=== PATIENT | female | born 1955 | race Caucasian/White ===

== ENCOUNTER 2021-09-20 09:20 | Inpatient (IN) ==
[2021-09-20 10:49] LABS: Basophils % 0.3 % (0.0-0.8); Eosinophils % 0.4 % (0.00-10.9); Hematocrit 40.1 VOL% (35.7-47.0); Hemoglobin 12.7 GM/DL (12.0-16.0); Immature Granulocytes % 0.3 %; Immature Granulocytes Absolute 0.03 #; Lymphocytes # 2.4 10*3/uL (1.4-4.0); Lymphocytes % 24.4 % (21.3-54.2); Mean Corpuscular HGB Conc 31.7 GM/DL (32-36); Mean Corpuscular Volume 84.6 FL (87-102); Mean Platelet Volume 8.9 FL (9.6-12.0); Monocytes # 0.6 10*3/uL (0.11-0.8); Neutrophils % 68.6 % (38.7-73.9); Platelet Count 398 T/CUMM (130-400); Red Blood Count 4.74 MC/CUMM (3.8-5.5); Red Cell Distribution Width 12.6 % (9.3-17.3); White Blood Count 9.7 T/CUMM (4-12)
[2021-09-20 10:53] LABS: Glucose,Urine (UA) >1000 mg/dL (Negative); Ketones,Urine Trace mg/dL (Negative); Mucus,Urine Many /LPF (Occasional); Nitrite,Urine Negative (Negative); Protein,Urine Trace mg/dL (Negative); RBC,Urine 2 /HPF (0-4); Squamous Epithelial Cell,Urine Occasional /HPF (0-10); Urine Appearance Clear (Clear); Urine Color Yellow (Yellow); Urine Specific Gravity > 1.030 (1.001-1.035); Urine pH 5.5 (4.5-8.0)
[2021-09-20 10:54] LABS: Bilirubin,Urine Negative (Negative); Blood, Urine Small mg/dL (Negative); Urine Urobilinogen 0.2 eU/dL (<2.0)
[2021-09-20 11:07] LABS: Bilirubin,Total 0.6 MG/DL (0.20-1.00); Calcium 10.1 MG/DL (8.5-10.1); Osmolality,Calculated 279.8 MOS/KG (273-304); Potassium 3.9 MMOL/L (3.5-5.1); Total Protein 7.5 G/DL (6.4-8.2)
[2021-09-20] MEDS ORDERED: ACETAMINOPHEN 325 MG TABLET PO PRN (14:59)
[2021-09-20] MEDS ORDERED: ONDANSETRON 4 MG/2 ML VIAL IV PRN (14:59)
[2021-09-20] MEDS ORDERED: DOCUSATE SODIUM 100 MG CAPSULE PO PRN (14:59)
[2021-09-20] MEDS ORDERED: hydrALAZINE 20 MG/1 ML VIAL IV PRN (14:59)
[2021-09-20] MEDS ORDERED: GLUCAGON 1 MG VIAL IM PRN (14:59)
[2021-09-20] MEDS ORDERED: ENOXAPARIN 40 MG/0.4 ML SYRINGE SUBCUT SCH (15:00)
[2021-09-20] MEDS ORDERED: DEXTROSE 10% 250 ML BAG IV PRN (15:12)
[2021-09-20] MEDS: LACTATED RINGERS 1,000 ML IV SCH (16:16)
[2021-09-20] MEDS: AZITHROMYCIN INJ 500 MG in SODIUM CHLORIDE 0.9% 250 ML IV SCH (16:16)
[2021-09-20] MEDS: methylPREDNISolone SOD SUC 40 MG/1 ML VIAL IV SCH (16:16)
[2021-09-20] MEDS: cefTRIAXone 1,000 MG in SODIUM CHLORIDE 0.9% 100 ML IV SCH (16:16)
[2021-09-20 16:59] LABS: Thyroid Stimulating Hormone 2.21 uIU/ml (0.358-3.74)
[2021-09-20] MEDS: INSULIN LISPRO 100 UNIT/ML SUBCUT SCH ×2 (18:44→21:52)
[2021-09-20] MEDS: glipiZIDE 10 MG TABLET PO SCH (18:45)
[2021-09-20] MEDS: ALBUTEROL/IPRATROPIUM 3 ML NEB RESP TX SCH (19:26)
[2021-09-20] MEDS: GABAPENTIN 600 MG TABLET PO SCH (21:12)
[2021-09-20] MEDS: SIMVASTATIN 20 MG TABLET PO SCH (21:12)
[2021-09-20] MEDS: FLUTICASONE 50 MCG NASAL SPRAY 16 GM BOTTLE BOTH NARES SCH (21:54)
[2021-09-21] MEDS: ALBUTEROL/IPRATROPIUM 3 ML NEB RESP TX SCH ×4 (00:52→19:25)
[2021-09-21] MEDS: LACTATED RINGERS 1,000 ML IV SCH ×3 (01:07→22:52)
[2021-09-21] MEDS: methylPREDNISolone SOD SUC 40 MG/1 ML VIAL IV SCH ×2 (02:34→17:42)
[2021-09-21 05:01] LABS: Hematocrit 35.5 VOL% (35.7-47.0); Hemoglobin 11.2 GM/DL (12.0-16.0); Immature Granulocytes % 0.5 %; Immature Granulocytes Absolute 0.04 #; Lymphocytes # 0.7 10*3/uL (1.4-4.0); Lymphocytes % 8.9 % (21.3-54.2); Mean Corpuscular HGB Conc 31.5 GM/DL (32-36); Mean Corpuscular Volume 83.7 FL (87-102); Mean Platelet Volume 8.9 FL (9.6-12.0); Monocytes # 0.1 10*3/uL (0.11-0.8); Neutrophils % 89.6 % (38.7-73.9); Platelet Count 350 T/CUMM (130-400); Red Blood Count 4.24 MC/CUMM (3.8-5.5); Red Cell Distribution Width 12.7 % (9.3-17.3); White Blood Count 7.3 T/CUMM (4-12)
[2021-09-21 05:23] LABS: Alanine Aminotransferase 13 U/L (13-56); Albumin 3.4 G/DL (3.4-5.0); Alkaline Phosphatase 152 U/L (45-117); Aspartate Amino Transferase 10 U/L (0-37); Bilirubin,Total < 0.39 MG/DL (0.20-1.00); Blood Urea Nitrogen 13 MG/DL (7-18); Calcium 9.6 MG/DL (8.5-10.1); Carbon Dioxide 23 MMOL/L (21-32); Chloride 104 MMOL/L (98-107); Cholesterol 152 MG/DL (50-200); Glucose 272 MG/DL (74-106); HDL Cholesterol 49 MG/DL (40-60); Osmolality,Calculated 282.8 MOS/KG (273-304); Potassium 3.9 MMOL/L (3.5-5.1); Sodium 137 MMOL/L (136-145); Total Protein 7.1 G/DL (6.4-8.2); Triglycerides 126 MG/DL (2-150); VLDL Cholesterol 25.2 MG/DL
[2021-09-21] MEDS ORDERED: METOPROLOL SUCCINATE XL 25 MG TABLET PO SCH (09:00)
[2021-09-21] MEDS: INSULIN GLARGINE 100 UNIT/ML SUBCUT SCH (09:58)
[2021-09-21] MEDS: ASPIRIN CHEW 81 MG TABLET PO SCH (09:58)
[2021-09-21] MEDS: glipiZIDE 10 MG TABLET PO SCH ×2 (09:58→18:02)
[2021-09-21] MEDS: METOPROLOL SUCCINATE XL 25 MG TABLET PO SCH ×2 (09:58→21:41)
[2021-09-21] MEDS: PANTOPRAZOLE 40 MG TABLET PO SCH (09:58)
[2021-09-21] MEDS: INSULIN LISPRO 100 UNIT/ML SUBCUT SCH ×4 (09:58→21:40)
[2021-09-21] MEDS: MAGNESIUM OXIDE 400 MG TABLET PO SCH (09:58)
[2021-09-21] MEDS: FLUTICASONE 50 MCG NASAL SPRAY 16 GM BOTTLE BOTH NARES SCH ×2 (09:59→20:51)
[2021-09-21] MEDS: GABAPENTIN 600 MG TABLET PO SCH ×3 (09:59→21:41)
[2021-09-21] MEDS ORDERED: APIXABAN 5 MG TABLET PO SCH (10:30)
[2021-09-21 10:36] LABS: % Iron Saturation 5.9 % (18-50)
[2021-09-21 10:52] LABS: Cancer Antigen 19-9 225.15 U/ML (0-35); Carcinoembryonic Antigen 44.6 NG/ML (0.0-5.0)
[2021-09-21] MEDS ORDERED: BENZONATATE 100 MG CAPSULE PO PRN (11:56)
[2021-09-21] MEDS: ENOXAPARIN 60 MG/0.6 ML SYRINGE SUBCUT SCH (12:22)
[2021-09-21] MEDS: cefTRIAXone 1,000 MG in SODIUM CHLORIDE 0.9% 100 ML IV SCH (17:47)
[2021-09-21] MEDS: AZITHROMYCIN INJ 500 MG in SODIUM CHLORIDE 0.9% 250 ML IV SCH (18:31)
[2021-09-21] MEDS: SIMVASTATIN 20 MG TABLET PO SCH (21:42)
[2021-09-22] MEDS: ENOXAPARIN 60 MG/0.6 ML SYRINGE SUBCUT SCH ×2 (00:19→13:47)
[2021-09-22] MEDS: ALBUTEROL/IPRATROPIUM 3 ML NEB RESP TX SCH ×4 (00:20→19:08)
[2021-09-22] MEDS: methylPREDNISolone SOD SUC 40 MG/1 ML VIAL IV SCH ×2 (02:55→16:45)
[2021-09-22] MEDS: INSULIN GLARGINE 100 UNIT/ML SUBCUT SCH (09:07)
[2021-09-22] MEDS: INSULIN LISPRO 100 UNIT/ML SUBCUT SCH ×4 (09:07→21:04)
[2021-09-22] MEDS: PANTOPRAZOLE 40 MG TABLET PO SCH (09:07)
[2021-09-22] MEDS: ASPIRIN CHEW 81 MG TABLET PO SCH (09:08)
[2021-09-22] MEDS: METOPROLOL SUCCINATE XL 25 MG TABLET PO SCH ×2 (09:08→20:38)
[2021-09-22] MEDS: MAGNESIUM OXIDE 400 MG TABLET PO SCH (09:08)
[2021-09-22] MEDS: glipiZIDE 10 MG TABLET PO SCH ×2 (09:08→18:13)
[2021-09-22] MEDS: FLUTICASONE 50 MCG NASAL SPRAY 16 GM BOTTLE BOTH NARES SCH ×2 (09:08→20:14)
[2021-09-22] MEDS: GABAPENTIN 600 MG TABLET PO SCH ×3 (09:08→20:39)
[2021-09-22] MEDS ORDERED: HYDROmorphone 1 MG/1 ML SYRINGE IV PRN (10:30)
[2021-09-22] MEDS: CHOLECALCIFEROL 1,000 UNIT TABLET PO SCH (13:46)
[2021-09-22] MEDS: LACTATED RINGERS 1,000 ML IV SCH ×2 (13:47→18:12)
[2021-09-22] MEDS: SIMVASTATIN 20 MG TABLET PO SCH (20:39)
[2021-09-23] MEDS: ALBUTEROL/IPRATROPIUM 3 ML NEB RESP TX SCH ×4 (00:46→19:17)
[2021-09-23] MEDS: LACTATED RINGERS 1,000 ML IV SCH ×2 (03:36→12:51)
[2021-09-23] MEDS: methylPREDNISolone SOD SUC 40 MG/1 ML VIAL IV SCH ×2 (03:37→15:45)
[2021-09-23 05:43] LABS: Hematocrit 33.3 VOL% (35.7-47.0); Hemoglobin 10.6 GM/DL (12.0-16.0); Immature Granulocytes % 0.7 %; Immature Granulocytes Absolute 0.05 #; Lymphocytes # 0.7 10*3/uL (1.4-4.0); Lymphocytes % 9.4 % (21.3-54.2); Mean Corpuscular HGB Conc 31.8 GM/DL (32-36); Mean Corpuscular Volume 83.7 FL (87-102); Mean Platelet Volume 9.1 FL (9.6-12.0); Monocytes # 0.1 10*3/uL (0.11-0.8); Monocytes % 1.8 % (1.7-12.7); Neutrophils % 88.1 % (38.7-73.9); Platelet Count 344 T/CUMM (130-400); Red Blood Count 3.98 MC/CUMM (3.8-5.5); Red Cell Distribution Width 12.8 % (9.3-17.3); White Blood Count 7.3 T/CUMM (4-12)
[2021-09-23 06:09] LABS: Calcium 9.6 MG/DL (8.5-10.1); Osmolality,Calculated 283.4 MOS/KG (273-304); Potassium 4.2 MMOL/L (3.5-5.1)
[2021-09-23] MEDS: METOPROLOL SUCCINATE XL 25 MG TABLET PO SCH (09:28)
[2021-09-23] MEDS: CHOLECALCIFEROL 1,000 UNIT TABLET PO SCH (09:28)
[2021-09-23] MEDS: PANTOPRAZOLE 40 MG TABLET PO SCH (09:29)
[2021-09-23] MEDS: GABAPENTIN 600 MG TABLET PO SCH ×3 (09:29→20:44)
[2021-09-23] MEDS: MAGNESIUM OXIDE 400 MG TABLET PO SCH (09:29)
[2021-09-23] MEDS: glipiZIDE 10 MG TABLET PO SCH ×2 (09:29→18:03)
[2021-09-23] MEDS: ASPIRIN CHEW 81 MG TABLET PO SCH (09:29)
[2021-09-23] MEDS: FLUTICASONE 50 MCG NASAL SPRAY 16 GM BOTTLE BOTH NARES SCH ×2 (09:30→20:47)
[2021-09-23] MEDS: LIDOCAINE 5% PATCH TRANSDERM SCH (09:41)
[2021-09-23] MEDS: INSULIN GLARGINE 100 UNIT/ML SUBCUT SCH (09:41)
[2021-09-23] MEDS: INSULIN LISPRO 100 UNIT/ML SUBCUT SCH ×4 (09:41→20:47)
[2021-09-23] MEDS: guaiFENesin/CODEINE 5 ML LIQUID PO PRN ×2 (10:26→20:43)
[2021-09-23] MEDS: SOTALOL 80 MG TABLET PO SCH ×2 (10:45→20:44)
[2021-09-23] MEDS: DILTIAZEM INJ 100 MG in SODIUM CHLORIDE 0.9% 100 ML IV SCH ×2 (12:53→12:54)
[2021-09-23] MEDS: ROSUVASTATIN 20 MG TABLET PO SCH (20:46)
[2021-09-23] MEDS: FERROUS SULFATE 325 MG TABLET PO SCH (20:48)
[2021-09-24] MEDS: ALBUTEROL/IPRATROPIUM 3 ML NEB RESP TX SCH ×4 (00:22→20:01)
[2021-09-24] MEDS: LACTATED RINGERS 1,000 ML IV SCH ×4 (00:36→19:59)
[2021-09-24] MEDS: methylPREDNISolone SOD SUC 40 MG/1 ML VIAL IV SCH ×2 (03:15→15:42)
[2021-09-24 05:50] LABS: Hematocrit 33.5 VOL% (35.7-47.0); Hemoglobin 10.7 GM/DL (12.0-16.0); Immature Granulocytes % 0.8 %; Immature Granulocytes Absolute 0.07 #; Lymphocytes # 0.7 10*3/uL (1.4-4.0); Lymphocytes % 7.9 % (21.3-54.2); Mean Corpuscular HGB Conc 31.9 GM/DL (32-36); Mean Corpuscular Volume 83.1 FL (87-102); Mean Platelet Volume 9.3 FL (9.6-12.0); Monocytes # 0.2 10*3/uL (0.11-0.8); Monocytes % 1.7 % (1.7-12.7); Neutrophils % 89.6 % (38.7-73.9); Platelet Count 368 T/CUMM (130-400); Red Blood Count 4.03 MC/CUMM (3.8-5.5); Red Cell Distribution Width 12.8 % (9.3-17.3); White Blood Count 9.2 T/CUMM (4-12)
[2021-09-24 06:07] LABS: Calcium 9.2 MG/DL (8.5-10.1)
[2021-09-24 06:11] LABS: Potassium 4.1 MMOL/L (3.5-5.1)
[2021-09-24] MEDS: INSULIN LISPRO 100 UNIT/ML SUBCUT SCH ×4 (06:30→22:47)
[2021-09-24] MEDS ORDERED: LIDOCAINE 2% 5 ML VIAL ONE (08:06)
[2021-09-24] MEDS ORDERED: propofoL 200 MG/20 ML VIAL IV ONE (08:06)
[2021-09-24] MEDS: glipiZIDE 10 MG TABLET PO SCH ×2 (09:56→17:50)
[2021-09-24] MEDS: ASPIRIN CHEW 81 MG TABLET PO SCH (09:56)
[2021-09-24] MEDS: MAGNESIUM OXIDE 400 MG TABLET PO SCH (09:57)
[2021-09-24] MEDS: PANTOPRAZOLE 40 MG TABLET PO SCH (09:57)
[2021-09-24] MEDS: FERROUS SULFATE 325 MG TABLET PO SCH ×2 (09:57→20:48)
[2021-09-24] MEDS: SOTALOL 80 MG TABLET PO SCH ×2 (09:57→20:48)
[2021-09-24] MEDS: CHOLECALCIFEROL 1,000 UNIT TABLET PO SCH (09:57)
[2021-09-24] MEDS: GABAPENTIN 600 MG TABLET PO SCH ×3 (09:57→20:48)
[2021-09-24] MEDS: INSULIN GLARGINE 100 UNIT/ML SUBCUT SCH (09:58)
[2021-09-24] MEDS: FLUTICASONE 50 MCG NASAL SPRAY 16 GM BOTTLE BOTH NARES SCH ×2 (09:58→22:47)
[2021-09-24] MEDS: LIDOCAINE 5% PATCH TRANSDERM SCH (09:59)
[2021-09-24] MEDS: DILTIAZEM INJ 100 MG in SODIUM CHLORIDE 0.9% 100 ML IV SCH (10:31)
[2021-09-24] MEDS: ROSUVASTATIN 20 MG TABLET PO SCH (20:48)
[2021-09-25] MEDS: ALBUTEROL/IPRATROPIUM 3 ML NEB RESP TX SCH ×5 (00:25→19:10)
[2021-09-25] MEDS: methylPREDNISolone SOD SUC 40 MG/1 ML VIAL IV SCH ×2 (02:35→16:22)
[2021-09-25 06:10] LABS: Basophils % 0.1 % (0.0-0.8); Hemoglobin 10.4 GM/DL (12.0-16.0); Lymphocytes # 0.8 10*3/uL (1.4-4.0); Lymphocytes % 7.9 % (21.3-54.2); Mean Corpuscular HGB Conc 31.5 GM/DL (32-36); Mean Corpuscular Volume 83.3 FL (87-102); Mean Platelet Volume 9.6 FL (9.6-12.0); Monocytes # 0.3 10*3/uL (0.11-0.8); Monocytes % 2.8 % (1.7-12.7); Neutrophils % 88.2 % (38.7-73.9); Platelet Count 379 T/CUMM (130-400); Red Blood Count 3.96 MC/CUMM (3.8-5.5); Red Cell Distribution Width 12.6 % (9.3-17.3); White Blood Count 9.8 T/CUMM (4-12)
[2021-09-25 06:33] LABS: Calcium 9.5 MG/DL (8.5-10.1); Osmolality,Calculated 285.4 MOS/KG (273-304); Potassium 3.8 MMOL/L (3.5-5.1)
[2021-09-25] MEDS: LACTATED RINGERS 1,000 ML IV SCH (06:57)
[2021-09-25] MEDS: CHOLECALCIFEROL 1,000 UNIT TABLET PO SCH (08:52)
[2021-09-25] MEDS: glipiZIDE 10 MG TABLET PO SCH ×2 (08:52→16:27)
[2021-09-25] MEDS: ASPIRIN CHEW 81 MG TABLET PO SCH (08:52)
[2021-09-25] MEDS: MAGNESIUM OXIDE 400 MG TABLET PO SCH (08:52)
[2021-09-25] MEDS: PANTOPRAZOLE 40 MG TABLET PO SCH (08:52)
[2021-09-25] MEDS: FERROUS SULFATE 325 MG TABLET PO SCH ×2 (08:53→20:55)
[2021-09-25] MEDS: SOTALOL 80 MG TABLET PO SCH ×2 (08:53→20:55)
[2021-09-25] MEDS: GABAPENTIN 600 MG TABLET PO SCH ×3 (08:53→20:54)
[2021-09-25] MEDS: INSULIN LISPRO 100 UNIT/ML SUBCUT SCH ×4 (08:53→21:24)
[2021-09-25] MEDS: guaiFENesin/CODEINE 5 ML LIQUID PO PRN (08:54)
[2021-09-25] MEDS: INSULIN GLARGINE 100 UNIT/ML SUBCUT SCH (08:54)
[2021-09-25] MEDS: FLUTICASONE 50 MCG NASAL SPRAY 16 GM BOTTLE BOTH NARES SCH ×2 (08:55→21:14)
[2021-09-25] MEDS: LIDOCAINE 5% PATCH TRANSDERM SCH (09:01)
[2021-09-25] MEDS ORDERED: DILTIAZEM 30 MG TABLET PO PRN (12:40)
[2021-09-25] MEDS: NYSTATIN 500,000 UNIT/5 ML UDCUP SWISH/SWAL SCH ×2 (16:28→21:51)
[2021-09-25] MEDS: ROSUVASTATIN 20 MG TABLET PO SCH (20:55)
[2021-09-26] MEDS: ALBUTEROL/IPRATROPIUM 3 ML NEB RESP TX SCH ×4 (00:30→18:59)
[2021-09-26] MEDS: methylPREDNISolone SOD SUC 40 MG/1 ML VIAL IV SCH ×2 (03:00→16:35)
[2021-09-26 05:16] LABS: Basophils % 0.1 % (0.0-0.8); Hematocrit 34.9 VOL% (35.7-47.0); Hemoglobin 11.1 GM/DL (12.0-16.0); Immature Granulocytes % 0.9 %; Lymphocytes # 1.5 10*3/uL (1.4-4.0); Lymphocytes % 13.7 % (21.3-54.2); Mean Corpuscular HGB Conc 31.8 GM/DL (32-36); Mean Corpuscular Volume 82.9 FL (87-102); Mean Platelet Volume 9.3 FL (9.6-12.0); Monocytes # 0.6 10*3/uL (0.11-0.8); Monocytes % 5.7 % (1.7-12.7); Neutrophils % 79.6 % (38.7-73.9); Platelet Count 433 T/CUMM (130-400); Red Blood Count 4.21 MC/CUMM (3.8-5.5); Red Cell Distribution Width 12.7 % (9.3-17.3)
[2021-09-26 05:42] LABS: Calcium 9.1 MG/DL (8.5-10.1); Osmolality,Calculated 287.7 MOS/KG (273-304); Potassium 4.4 MMOL/L (3.5-5.1)
[2021-09-26] MEDS ORDERED: MEPERIDINE 50 MG/1 ML VIAL IM ONE (07:00)
[2021-09-26] MEDS ORDERED: PROMETHAZINE 25 MG/1 ML VIAL IM ONE (07:00)
[2021-09-26] MEDS: DILTIAZEM INJ 100 MG in SODIUM CHLORIDE 0.9% 100 ML IV SCH ×2 (07:15→08:50)
[2021-09-26] MEDS: LACTATED RINGERS 1,000 ML IV SCH ×2 (07:15→13:18)
[2021-09-26] MEDS ORDERED: MIDAZOLAM 2 MG/2 ML VIAL IV ONE (07:30)
[2021-09-26] MEDS ORDERED: LIDOCAINE 1% 20 ML VIAL MISC INJ ONE (07:30)
[2021-09-26] MEDS ORDERED: LIDOCAINE 2% 20 ML VIAL RESP TX ONE (07:30)
[2021-09-26] MEDS ORDERED: LIDOCAINE 2% VISCOUS 100 ML BOTTLE SWISH/SPIT ONE (07:30)
[2021-09-26] MEDS: MAGNESIUM OXIDE 400 MG TABLET PO SCH (08:50)
[2021-09-26] MEDS: INSULIN LISPRO 100 UNIT/ML SUBCUT SCH ×4 (08:50→21:49)
[2021-09-26] MEDS: INSULIN GLARGINE 100 UNIT/ML SUBCUT SCH (08:50)
[2021-09-26] MEDS: SOTALOL 80 MG TABLET PO SCH ×2 (08:50→20:48)
[2021-09-26] MEDS: FERROUS SULFATE 325 MG TABLET PO SCH ×2 (08:50→20:48)
[2021-09-26] MEDS: glipiZIDE 10 MG TABLET PO SCH ×2 (08:50→17:16)
[2021-09-26] MEDS: ASPIRIN CHEW 81 MG TABLET PO SCH (08:50)
[2021-09-26] MEDS: FLUTICASONE 50 MCG NASAL SPRAY 16 GM BOTTLE BOTH NARES SCH ×2 (08:50→20:49)
[2021-09-26] MEDS: LIDOCAINE 5% PATCH TRANSDERM SCH (08:50)
[2021-09-26] MEDS: NYSTATIN 500,000 UNIT/5 ML UDCUP SWISH/SWAL SCH ×4 (08:57→20:47)
[2021-09-26] MEDS: GABAPENTIN 600 MG TABLET PO SCH ×3 (08:57→20:48)
[2021-09-26] MEDS ORDERED: LIDOCAINE 2% 5 ML VIAL ONE ×2 (10:48→12:17)
[2021-09-26] MEDS ORDERED: fentaNYL 100 MCG/2 ML VIAL ONE ×2 (10:48→12:17)
[2021-09-26] MEDS ORDERED: propofoL 200 MG/20 ML VIAL IV ONE ×2 (10:48→12:17)
[2021-09-26] MEDS ORDERED: LACTATED RINGERS 1,000 ML IV SCH (11:00)
[2021-09-26] MEDS ORDERED: BUPIVACAINE MPF 0.25% 10 ML VIAL ONE (11:30)
[2021-09-26] MEDS ORDERED: LIDOCAINE 1% 5 ML VIAL ONE (11:31)
[2021-09-26] MEDS ORDERED: DEXAMETHASONE 10 MG/1 ML VIAL ONE (11:31)
[2021-09-26] MEDS ORDERED: TISSUE ADHESIVE 1 EACH APPLICATOR TOP ONE (12:07)
[2021-09-26] MEDS: CHOLECALCIFEROL 1,000 UNIT TABLET PO SCH (16:39)
[2021-09-26] MEDS: PANTOPRAZOLE 40 MG TABLET PO SCH (16:39)
[2021-09-26] MEDS: ROSUVASTATIN 20 MG TABLET PO SCH (20:48)
[2021-09-27] MEDS: ALBUTEROL/IPRATROPIUM 3 ML NEB RESP TX SCH ×2 (00:11→07:18)
[2021-09-27] MEDS: methylPREDNISolone SOD SUC 40 MG/1 ML VIAL IV SCH ×2 (04:04→16:51)
[2021-09-27 07:52] LABS: Basophils % 0.1 % (0.0-0.8); Hematocrit 37.3 VOL% (35.7-47.0); Immature Granulocytes % 0.8 %; Immature Granulocytes Absolute 0.08 #; Lymphocytes # 0.8 10*3/uL (1.4-4.0); Lymphocytes % 7.4 % (21.3-54.2); Mean Corpuscular HGB Conc 32.2 GM/DL (32-36); Mean Corpuscular Volume 82.9 FL (87-102); Mean Platelet Volume 8.8 FL (9.6-12.0); Monocytes # 0.3 10*3/uL (0.11-0.8); Monocytes % 3.3 % (1.7-12.7); Neutrophils % 88.4 % (38.7-73.9); Platelet Count 444 T/CUMM (130-400); Red Cell Distribution Width 12.8 % (9.3-17.3); White Blood Count 10.3 T/CUMM (4-12)
[2021-09-27 08:09] LABS: Calcium 9.3 MG/DL (8.5-10.1); Osmolality,Calculated 286.2 MOS/KG (273-304); Potassium 4.4 MMOL/L (3.5-5.1)
[2021-09-27] MEDS: INSULIN LISPRO 100 UNIT/ML SUBCUT SCH ×3 (08:37→16:51)
[2021-09-27] MEDS: glipiZIDE 10 MG TABLET PO SCH (08:37)
[2021-09-27] MEDS: FERROUS SULFATE 325 MG TABLET PO SCH (08:38)
[2021-09-27] MEDS: INSULIN GLARGINE 100 UNIT/ML SUBCUT SCH (08:39)
[2021-09-27] MEDS: ASPIRIN CHEW 81 MG TABLET PO SCH (08:39)
[2021-09-27] MEDS: LIDOCAINE 5% PATCH TRANSDERM SCH (08:39)
[2021-09-27] MEDS: FLUTICASONE 50 MCG NASAL SPRAY 16 GM BOTTLE BOTH NARES SCH (08:39)
[2021-09-27] MEDS: SOTALOL 80 MG TABLET PO SCH (08:39)
[2021-09-27] MEDS: CHOLECALCIFEROL 1,000 UNIT TABLET PO SCH (08:40)
[2021-09-27] MEDS: NYSTATIN 500,000 UNIT/5 ML UDCUP SWISH/SWAL SCH ×2 (08:40→13:51)
[2021-09-27] MEDS: MAGNESIUM OXIDE 400 MG TABLET PO SCH (08:40)
[2021-09-27] MEDS: GABAPENTIN 600 MG TABLET PO SCH ×2 (08:40→16:51)
[2021-09-27] MEDS: PANTOPRAZOLE 40 MG TABLET PO SCH (08:40)
[2021-09-27] MEDS: DILTIAZEM INJ 100 MG in SODIUM CHLORIDE 0.9% 100 ML IV SCH (10:54)
[2021-09-27] MEDS: LACTATED RINGERS 1,000 ML IV SCH (10:55)
[2021-09-27 13:32] VITALS: BP 109/85
== END 2021-09-27 15:06 | disposition home or self-care (01) | DRG 988 ==
LOC: SUATTDRO → N.ED 09:20 → N.EDINP 09:20 → SUATTDRO 14:59 → N.EDINP 17:36 → N.TELES 17:39
PROVIDERS: ADMIT Family Medicine; ATTEND Internal Medicine Geriatric Medicine
PROC: BRONCHB (2021-09-26 07:35)

== ENCOUNTER 2021-12-14 07:29 | Inpatient (IN) ==
[2021-12-14] MEDS ORDERED: SODIUM CHLORIDE 0.9% 1,000 ML IV STA (07:59)
[2021-12-14 08:11] LABS: Basophils # 0.1 10*3/uL (0.0-0.2); Basophils % 0.6 % (0.0-0.8); Eosinophils # 0.1 10*3/uL (0.0-0.87); Eosinophils % 0.7 % (0.00-10.9); Hematocrit 34.2 VOL% (35.7-47.0); Hemoglobin 10.3 GM/DL (12.0-16.0); Immature Granulocytes % 0.4 %; Immature Granulocytes Absolute 0.04 #; Lymphocytes % 10.9 % (21.3-54.2); Mean Corpuscular HGB Conc 30.1 GM/DL (32-36); Mean Corpuscular Volume 81.6 FL (87-102); Mean Platelet Volume 8.6 FL (9.6-12.0); Monocytes # 0.4 10*3/uL (0.11-0.8); Monocytes % 4.4 % (1.7-12.7); Platelet Count 572 T/CUMM (130-400); Red Blood Count 4.19 MC/CUMM (3.8-5.5); Red Cell Distribution Width 15.4 % (9.3-17.3); White Blood Count 8.9 T/CUMM (4-12)
[2021-12-14 08:25] LABS: Albumin 2.9 G/DL (3.4-5.0); Bilirubin,Total 0.5 MG/DL (0.20-1.00); Calcium 9.4 MG/DL (8.5-10.1); Potassium 4.2 MMOL/L (3.5-5.1); Total Protein 7.2 G/DL (6.4-8.2)
[2021-12-14 08:29] LABS: Glucose,Urine (UA) Negative (Negative); Ketones,Urine >=160 mg/dL (Negative); Nitrite,Urine Negative (Negative); Protein,Urine Trace mg/dL (Negative); Urine Appearance Clear (Clear); Urine Color Yellow (Yellow); Urine Specific Gravity >= 1.030 (1.001-1.035); Urine pH 5.5 (4.5-8.0)
[2021-12-14 08:30] LABS: Bilirubin,Urine Small mg/dL (Negative); Blood, Urine Trace mg/dL (Negative); Urine Urobilinogen 0.2 eU/dL (<2.0)
[2021-12-14 08:39] LABS: Hyaline Casts,Urine 13 /LPF (0-3); Mucus,Urine Few /LPF (Occasional); RBC,Urine 2 /HPF (0-4); Squamous Epithelial Cell,Urine Occasional /HPF (0-10)
[2021-12-14] MEDS ORDERED: cefTRIAXone 1,000 MG in SODIUM CHLORIDE 0.9% 100 ML IV STA (09:23)
[2021-12-14] MEDS ORDERED: GLUCAGON 1 MG VIAL IM PRN (10:35)
[2021-12-14] MEDS ORDERED: ACETAMINOPHEN 325 MG TABLET PO PRN (10:35)
[2021-12-14] MEDS ORDERED: MORPHINE 2 MG/1 ML SYRINGE IV STA (10:54)
[2021-12-14] MEDS ORDERED: ALBUTEROL/IPRATROPIUM 3 ML NEB RESP TX ONE (10:54)
[2021-12-14] MEDS ORDERED: ENOXAPARIN 40 MG/0.4 ML SYRINGE SUBCUT SCH (11:00)
[2021-12-14] MEDS ORDERED: PANTOPRAZOLE 40 MG VIAL IV SCH (11:00)
[2021-12-14] MEDS: ALBUTEROL/IPRATROPIUM 3 ML NEB RESP TX SCH ×2 (11:45→19:36)
[2021-12-14 12:02] LABS: Calcium 8.2 MG/DL (8.5-10.1); Osmolality,Calculated 284.7 MOS/KG (273-304)
[2021-12-14] MEDS: LACTATED RINGERS 1,000 ML IV SCH (13:00)
[2021-12-14] MEDS: AZITHROMYCIN INJ 500 MG in SODIUM CHLORIDE 0.9% 250 ML IV SCH (13:20)
[2021-12-14] MEDS: INSULIN GLARGINE 100 UNIT/ML SUBCUT SCH (13:20)
[2021-12-14] MEDS: ONDANSETRON 4 MG/2 ML VIAL IV PRN (13:55)
[2021-12-14] MEDS ORDERED: INSULIN LISPRO 100 UNIT/ML SUBCUT SCH (14:00)
[2021-12-14] MEDS ORDERED: MAGNESIUM SULF RIDER 2 GM/50 ML PREMIX IV ONE (14:29)
[2021-12-14] MEDS: MORPHINE 2 MG/1 ML SYRINGE IV PRN (14:53)
[2021-12-14] MEDS: METOCLOPRAMIDE 10 MG/2 ML VIAL IV SCH ×2 (16:00→20:36)
[2021-12-14] MEDS: INSULIN LISPRO 100 UNIT/ML SUBCUT SCH ×3 (16:09→23:34)
[2021-12-14] MEDS ORDERED: METOCLOPRAMIDE 10 MG/2 ML VIAL IV SCH (18:00)
[2021-12-14] MEDS: DEXTROSE 10% 250 ML BAG IV PRN (19:48)
[2021-12-14] MEDS: PANTOPRAZOLE 40 MG VIAL IV SCH (20:36)
[2021-12-14] MEDS: GABAPENTIN 600 MG TABLET PO SCH (20:36)
[2021-12-14] MEDS: SOTALOL 80 MG TABLET PO SCH (20:36)
[2021-12-15] MEDS: LACTATED RINGERS 1,000 ML IV SCH ×4 (01:19→21:56)
[2021-12-15] MEDS: METOCLOPRAMIDE 10 MG/2 ML VIAL IV SCH ×4 (03:45→21:50)
[2021-12-15] MEDS: MORPHINE 2 MG/1 ML SYRINGE IV PRN ×4 (03:47→21:56)
[2021-12-15] MEDS: INSULIN LISPRO 100 UNIT/ML SUBCUT SCH ×5 (04:00→23:04)
[2021-12-15 05:19] LABS: Basophils # 0.1 10*3/uL (0.0-0.2); Basophils % 0.7 % (0.0-0.8); Eosinophils # 0.1 10*3/uL (0.0-0.87); Eosinophils % 0.8 % (0.00-10.9); Hematocrit 30.8 VOL% (35.7-47.0); Hemoglobin 9.5 GM/DL (12.0-16.0); Immature Granulocytes % 0.4 %; Immature Granulocytes Absolute 0.03 #; Lymphocytes # 1.1 10*3/uL (1.4-4.0); Mean Corpuscular HGB Conc 30.8 GM/DL (32-36); Mean Corpuscular Volume 80.6 FL (87-102); Mean Platelet Volume 8.7 FL (9.6-12.0); Monocytes # 0.4 10*3/uL (0.11-0.8); Monocytes % 5.3 % (1.7-12.7); Neutrophils % 76.8 % (38.7-73.9); Platelet Count 485 T/CUMM (130-400); Red Blood Count 3.82 MC/CUMM (3.8-5.5); Red Cell Distribution Width 15.4 % (9.3-17.3); White Blood Count 7.1 T/CUMM (4-12)
[2021-12-15 05:48] LABS: Alanine Aminotransferase 10 U/L (13-56); Albumin 2.5 G/DL (3.4-5.0); Alkaline Phosphatase 173 U/L (45-117); Aspartate Amino Transferase 13 U/L (0-37); Bilirubin,Total < 0.39 MG/DL (0.20-1.00); Blood Urea Nitrogen 8 MG/DL (7-18); Calcium 9.3 MG/DL (8.5-10.1); Carbon Dioxide 23 MMOL/L (21-32); Chloride 107 MMOL/L (98-107); Cholesterol 116 MG/DL (50-200); Glucose 237 MG/DL (74-106); HDL Cholesterol 40 MG/DL (40-60); Osmolality,Calculated 282.5 MOS/KG (273-304); Potassium 4.3 MMOL/L (3.5-5.1); Sodium 139 MMOL/L (136-145); Total Protein 6.3 G/DL (6.4-8.2); Triglycerides 107 MG/DL (2-150); VLDL Cholesterol 21.4 MG/DL
[2021-12-15] MEDS: ALBUTEROL/IPRATROPIUM 3 ML NEB RESP TX SCH ×4 (07:29→19:08)
[2021-12-15] MEDS: INSULIN GLARGINE 100 UNIT/ML SUBCUT SCH (09:55)
[2021-12-15] MEDS: cefTRIAXone 1,000 MG in SODIUM CHLORIDE 0.9% 100 ML IV SCH (09:59)
[2021-12-15] MEDS: PANTOPRAZOLE 40 MG VIAL IV SCH ×2 (10:00→21:50)
[2021-12-15] MEDS: GABAPENTIN 600 MG TABLET PO SCH ×3 (10:00→21:50)
[2021-12-15] MEDS: SOTALOL 80 MG TABLET PO SCH ×2 (10:00→21:50)
[2021-12-15] MEDS: AZITHROMYCIN INJ 500 MG in SODIUM CHLORIDE 0.9% 250 ML IV SCH (10:40)
[2021-12-15] MEDS: SIMVASTATIN 20 MG TABLET PO SCH (21:50)
[2021-12-15] MEDS: DOCUSATE SODIUM 100 MG CAPSULE PO SCH (21:50)
[2021-12-16] MEDS: INSULIN LISPRO 100 UNIT/ML SUBCUT SCH ×6 (01:08→22:30)
[2021-12-16] MEDS: MORPHINE 2 MG/1 ML SYRINGE IV PRN ×3 (01:38→22:32)
[2021-12-16] MEDS: ONDANSETRON 4 MG/2 ML VIAL IV PRN ×2 (01:39→22:31)
[2021-12-16] MEDS: METOCLOPRAMIDE 10 MG/2 ML VIAL IV SCH ×4 (04:34→21:02)
[2021-12-16] MEDS: LACTATED RINGERS 1,000 ML IV SCH ×3 (06:18→18:36)
[2021-12-16] MEDS: ALBUTEROL/IPRATROPIUM 3 ML NEB RESP TX SCH ×4 (07:18→19:51)
[2021-12-16] MEDS: INSULIN GLARGINE 100 UNIT/ML SUBCUT SCH (08:20)
[2021-12-16] MEDS ORDERED: SUCCINYLCHOLINE 200 MG/10 ML VIAL ONE (09:03)
[2021-12-16] MEDS ORDERED: ETOMIDATE 20 MG/10 ML VIAL IV ONE (09:03)
[2021-12-16] MEDS ORDERED: ONDANSETRON 4 MG/2 ML VIAL ONE (09:03)
[2021-12-16] MEDS ORDERED: LIDOCAINE 2% 5 ML VIAL ONE (09:03)
[2021-12-16] MEDS ORDERED: SEVOFLURANE 1 UNIT/15 MINUTE INH ONE (09:03)
[2021-12-16] MEDS ORDERED: propofoL 200 MG/20 ML VIAL IV ONE (09:03)
[2021-12-16] MEDS: cefTRIAXone 1,000 MG in SODIUM CHLORIDE 0.9% 100 ML IV SCH (11:19)
[2021-12-16] MEDS: PANTOPRAZOLE 40 MG VIAL IV SCH ×2 (11:19→21:03)
[2021-12-16] MEDS: GABAPENTIN 600 MG TABLET PO SCH ×3 (11:20→21:04)
[2021-12-16] MEDS: SOTALOL 80 MG TABLET PO SCH ×2 (11:20→21:03)
[2021-12-16] MEDS: DOCUSATE SODIUM 100 MG CAPSULE PO SCH ×2 (11:20→21:03)
[2021-12-16] MEDS: AZITHROMYCIN INJ 500 MG in SODIUM CHLORIDE 0.9% 250 ML IV SCH (13:45)
[2021-12-16] MEDS: SIMVASTATIN 20 MG TABLET PO SCH (21:04)
[2021-12-17] MEDS: ALBUTEROL/IPRATROPIUM 3 ML NEB RESP TX SCH ×4 (00:28→18:51)
[2021-12-17] MEDS: INSULIN LISPRO 100 UNIT/ML SUBCUT SCH ×6 (01:58→20:00)
[2021-12-17] MEDS: METOCLOPRAMIDE 10 MG/2 ML VIAL IV SCH ×2 (03:59→10:46)
[2021-12-17] MEDS: ONDANSETRON 4 MG/2 ML VIAL IV PRN (04:21)
[2021-12-17] MEDS: MORPHINE 2 MG/1 ML SYRINGE IV PRN ×4 (04:23→22:11)
[2021-12-17] MEDS: LACTATED RINGERS 1,000 ML IV SCH ×3 (04:25→19:29)
[2021-12-17 05:11] LABS: Basophils % 0.4 % (0.0-0.8); Eosinophils # 0.1 10*3/uL (0.0-0.87); Eosinophils % 1.4 % (0.00-10.9); Hematocrit 30.5 VOL% (35.7-47.0); Hemoglobin 9.6 GM/DL (12.0-16.0); Immature Granulocytes % 0.5 %; Immature Granulocytes Absolute 0.04 #; Lymphocytes # 1.2 10*3/uL (1.4-4.0); Lymphocytes % 16.2 % (21.3-54.2); Mean Corpuscular HGB Conc 31.5 GM/DL (32-36); Mean Corpuscular Volume 79.4 FL (87-102); Mean Platelet Volume 8.7 FL (9.6-12.0); Monocytes # 0.4 10*3/uL (0.11-0.8); Monocytes % 5.7 % (1.7-12.7); Neutrophils % 75.8 % (38.7-73.9); Platelet Count 381 T/CUMM (130-400); Red Blood Count 3.84 MC/CUMM (3.8-5.5); Red Cell Distribution Width 15.9 % (9.3-17.3); White Blood Count 7.4 T/CUMM (4-12)
[2021-12-17 05:33] LABS: Albumin 2.5 G/DL (3.4-5.0); Bilirubin,Total 0.4 MG/DL (0.20-1.00); Osmolality,Calculated 279.8 MOS/KG (273-304); Potassium 4.1 MMOL/L (3.5-5.1); Total Protein 6.1 G/DL (6.4-8.2)
[2021-12-17] MEDS: PANTOPRAZOLE 40 MG VIAL IV SCH (10:44)
[2021-12-17] MEDS: DOCUSATE SODIUM 100 MG CAPSULE PO SCH ×2 (10:46→22:02)
[2021-12-17] MEDS: SOTALOL 80 MG TABLET PO SCH ×2 (10:47→22:02)
[2021-12-17] MEDS: INSULIN GLARGINE 100 UNIT/ML SUBCUT SCH (10:47)
[2021-12-17] MEDS: GABAPENTIN 600 MG TABLET PO SCH ×3 (10:47→22:02)
[2021-12-17] MEDS: cefTRIAXone 1,000 MG in SODIUM CHLORIDE 0.9% 100 ML IV SCH (11:34)
[2021-12-17] MEDS: AZITHROMYCIN INJ 500 MG in SODIUM CHLORIDE 0.9% 250 ML IV SCH (12:45)
[2021-12-17] MEDS: METOCLOPRAMIDE 10 MG/10 ML UDCUP PO SCH ×2 (17:01→22:02)
[2021-12-17] MEDS: PANTOPRAZOLE 40 MG TABLET PO SCH (22:02)
[2021-12-17] MEDS: SIMVASTATIN 20 MG TABLET PO SCH (22:02)
[2021-12-18] MEDS: INSULIN LISPRO 100 UNIT/ML SUBCUT SCH ×5 (00:27→16:19)
[2021-12-18] MEDS: ALBUTEROL/IPRATROPIUM 3 ML NEB RESP TX SCH ×2 (01:25→07:45)
[2021-12-18] MEDS: LACTATED RINGERS 1,000 ML IV SCH ×2 (03:30→13:10)
[2021-12-18] MEDS: MORPHINE 2 MG/1 ML SYRINGE IV PRN ×2 (04:23→08:53)
[2021-12-18 05:12] LABS: Basophils % 0.3 % (0.0-0.8); Eosinophils # 0.1 10*3/uL (0.0-0.87); Eosinophils % 1.4 % (0.00-10.9); Hematocrit 32.9 VOL% (35.7-47.0); Hemoglobin 10.1 GM/DL (12.0-16.0); Immature Granulocytes % 0.2 %; Immature Granulocytes Absolute 0.02 #; Lymphocytes # 1.7 10*3/uL (1.4-4.0); Lymphocytes % 19.1 % (21.3-54.2); Mean Corpuscular HGB Conc 30.7 GM/DL (32-36); Mean Corpuscular Volume 80.2 FL (87-102); Mean Platelet Volume 9.2 FL (9.6-12.0); Monocytes # 0.5 10*3/uL (0.11-0.8); Monocytes % 5.8 % (1.7-12.7); Neutrophils % 73.2 % (38.7-73.9); Platelet Count 442 T/CUMM (130-400); White Blood Count 8.9 T/CUMM (4-12)
[2021-12-18 05:44] LABS: Albumin 2.5 G/DL (3.4-5.0); Bilirubin,Total 0.4 MG/DL (0.20-1.00); Calcium 9.4 MG/DL (8.5-10.1); Osmolality,Calculated 280.5 MOS/KG (273-304); Potassium 3.7 MMOL/L (3.5-5.1); Total Protein 6.4 G/DL (6.4-8.2)
[2021-12-18 05:51] LABS: % Iron Saturation 6.8 % (18-50); Ferritin 75.8 ng/mL (8-252)
[2021-12-18] MEDS: PANTOPRAZOLE 40 MG TABLET PO SCH (08:48)
[2021-12-18] MEDS: SOTALOL 80 MG TABLET PO SCH (08:48)
[2021-12-18] MEDS: DOCUSATE SODIUM 100 MG CAPSULE PO SCH (08:48)
[2021-12-18] MEDS: METOCLOPRAMIDE 10 MG/10 ML UDCUP PO SCH ×3 (08:48→16:16)
[2021-12-18] MEDS: INSULIN GLARGINE 100 UNIT/ML SUBCUT SCH (08:49)
[2021-12-18] MEDS: GABAPENTIN 600 MG TABLET PO SCH ×2 (08:49→15:00)
[2021-12-18] MEDS: cefTRIAXone 1,000 MG in SODIUM CHLORIDE 0.9% 100 ML IV SCH (08:49)
[2021-12-18] MEDS ORDERED: FERRIC GLUCONATE COMPLEX 125 MG in SODIUM CHLORIDE 0.9% 100 ML IV SCH (09:00)
[2021-12-18] MEDS: AZITHROMYCIN INJ 500 MG in SODIUM CHLORIDE 0.9% 250 ML IV SCH (10:51)
[2021-12-18 12:11] VITALS: BP 120/62
[2021-12-18] MEDS: DEXTROSE 10% 250 ML BAG IV PRN (16:11)
== END 2021-12-18 17:27 | disposition home or self-care (01) | DRG 73 ==
LOC: N.ED 07:29 → N.EDINP 10:35 → SUATTDRO 10:35 → N.5E 11:22
PROVIDERS: ADMIT Phlebology; ATTEND Internal Medicine

== ENCOUNTER 2022-01-05 19:02 | Inpatient (IN) ==
[2022-01-05] MEDS ORDERED: KETOROLAC 30 MG/1 ML VIAL IV STA (19:33)
[2022-01-05] MEDS ORDERED: ACETAMINOPHEN 500 MG TABLET PO STA (19:36)
[2022-01-05 20:08] LABS: Basophils % 0.3 % (0.0-0.8); Hematocrit 33.4 VOL% (35.7-47.0); Hemoglobin 10.4 GM/DL (12.0-16.0); Immature Granulocytes % 0.4 %; Immature Granulocytes Absolute 0.03 #; Lymphocytes # 0.7 10*3/uL (1.4-4.0); Lymphocytes % 10.7 % (21.3-54.2); Mean Corpuscular HGB Conc 31.1 GM/DL (32-36); Mean Corpuscular Volume 77.9 FL (87-102); Mean Platelet Volume 8.5 FL (9.6-12.0); Monocytes # 0.4 10*3/uL (0.11-0.8); Monocytes % 5.4 % (1.7-12.7); Neutrophils % 83.2 % (38.7-73.9); Platelet Count 292 T/CUMM (130-400); Red Blood Count 4.29 MC/CUMM (3.8-5.5); White Blood Count 6.7 T/CUMM (4-12)
[2022-01-05 20:31] LABS: Albumin 2.8 G/DL (3.4-5.0); Bilirubin,Total 0.4 MG/DL (0.20-1.00); Calcium 8.9 MG/DL (8.5-10.1); Osmolality,Calculated 269.4 MOS/KG (273-304); Total Protein 7.3 G/DL (6.4-8.2)
[2022-01-05 21:08] LABS: Glucose,Urine (UA) Negative (Negative); Mucus,Urine Occasional /LPF (Occasional); Protein,Urine 30 mg/dL (Negative); RBC,Urine 6 /HPF (0-4); Squamous Epithelial Cell,Urine Occasional /HPF (0-10); Urine Appearance Clear (Clear); Urine Color Yellow (Yellow); Urine pH 8.5 (4.5-8.0)
[2022-01-05 21:09] LABS: Bilirubin,Urine Negative (Negative); Blood, Urine Negative (Negative); Ketones,Urine 15 mg/dL (Negative); Nitrite,Urine Negative (Negative)
[2022-01-05] MEDS ORDERED: PIPERACILLIN/TAZOBACTAM 3,375 MG in SODIUM CHLORIDE 0.9% 100 ML IV STA (21:18)
[2022-01-05] MEDS ORDERED: DEXTROSE 10% 250 ML BAG IV PRN (22:15)
[2022-01-05] MEDS ORDERED: GLUCAGON 1 MG VIAL IM PRN (22:15)
[2022-01-05] MEDS ORDERED: MORPHINE 2 MG/1 ML SYRINGE IV PRN (22:15)
[2022-01-05] MEDS ORDERED: ONDANSETRON 4 MG/2 ML VIAL IV PRN (22:15)
[2022-01-05] MEDS ORDERED: hydrALAZINE 20 MG/1 ML VIAL IV PRN (22:34)
[2022-01-05] MEDS: SODIUM CHLORIDE 0.9% 1,000 ML IV SCH (22:45)
[2022-01-06] MEDS: LEVALBUTEROL 1.25 MG/3 ML NEB RESP TX SCH ×5 (02:13→19:15)
[2022-01-06] MEDS: IPRATROPIUM 500 MCG/2.5 ML NEB RESP TX SCH ×4 (02:13→19:15)
[2022-01-06] MEDS: PIPERACILLIN/TAZOBACTAM 3,375 MG in SODIUM CHLORIDE 0.9% 100 ML IV SCH ×3 (04:28→20:49)
[2022-01-06 05:30] LABS: Basophils % 0.2 % (0.0-0.8); Hematocrit 31.6 VOL% (35.7-47.0); Hemoglobin 9.9 GM/DL (12.0-16.0); Immature Granulocytes % 0.4 %; Immature Granulocytes Absolute 0.02 #; Lymphocytes # 0.7 10*3/uL (1.4-4.0); Lymphocytes % 14.9 % (21.3-54.2); Mean Corpuscular HGB Conc 31.3 GM/DL (32-36); Mean Corpuscular Volume 79.2 FL (87-102); Monocytes # 0.4 10*3/uL (0.11-0.8); Monocytes % 8.5 % (1.7-12.7); Platelet Count 261 T/CUMM (130-400); Red Blood Count 3.99 MC/CUMM (3.8-5.5)
[2022-01-06 05:50] LABS: Calcium 9.3 MG/DL (8.5-10.1); Osmolality,Calculated 273.8 MOS/KG (273-304); Potassium 3.3 MMOL/L (3.5-5.1)
[2022-01-06] MEDS: INSULIN LISPRO 100 UNIT/ML SUBCUT SCH ×4 (08:02→21:14)
[2022-01-06] MEDS: METOCLOPRAMIDE 10 MG TABLET PO SCH ×4 (08:03→20:38)
[2022-01-06] MEDS: amLODIPine 5 MG TABLET PO SCH (09:37)
[2022-01-06] MEDS: SIMVASTATIN 20 MG TABLET PO SCH (09:37)
[2022-01-06] MEDS: GABAPENTIN 600 MG TABLET PO SCH ×3 (09:37→20:37)
[2022-01-06] MEDS: SOTALOL 80 MG TABLET PO SCH ×2 (09:37→20:37)
[2022-01-06] MEDS: APIXABAN 5 MG TABLET PO SCH ×2 (09:37→20:37)
[2022-01-06] MEDS: PANTOPRAZOLE 40 MG TABLET PO SCH (09:38)
[2022-01-06] MEDS ORDERED: POTASSIUM CHLORIDE 20 MEQ TABLET PO ONE (16:30)
[2022-01-06] MEDS: SODIUM CHLORIDE 0.9% 1,000 ML IV SCH (16:51)
[2022-01-07] MEDS: IPRATROPIUM 500 MCG/2.5 ML NEB RESP TX SCH ×4 (00:08→18:50)
[2022-01-07] MEDS: LEVALBUTEROL 1.25 MG/3 ML NEB RESP TX SCH ×6 (00:08→18:50)
[2022-01-07] MEDS: PIPERACILLIN/TAZOBACTAM 3,375 MG in SODIUM CHLORIDE 0.9% 100 ML IV SCH ×3 (04:32→22:23)
[2022-01-07] MEDS: ACETAMINOPHEN 325 MG TABLET PO PRN ×2 (04:34→09:20)
[2022-01-07 05:54] LABS: Basophils % 0.3 % (0.0-0.8); Hematocrit 30.3 VOL% (35.7-47.0); Hemoglobin 9.4 GM/DL (12.0-16.0); Immature Granulocytes % 0.7 %; Immature Granulocytes Absolute 0.04 #; Lymphocytes # 0.8 10*3/uL (1.4-4.0); Mean Corpuscular Volume 78.3 FL (87-102); Mean Platelet Volume 9.3 FL (9.6-12.0); Monocytes # 0.4 10*3/uL (0.11-0.8); Monocytes % 6.5 % (1.7-12.7); Neutrophils % 78.5 % (38.7-73.9); Platelet Count 209 T/CUMM (130-400); Red Blood Count 3.87 MC/CUMM (3.8-5.5); Red Cell Distribution Width 16.9 % (9.3-17.3)
[2022-01-07 06:04] LABS: Calcium 8.1 MG/DL (8.5-10.1); Osmolality,Calculated 269.1 MOS/KG (273-304); Potassium 4.2 MMOL/L (3.5-5.1)
[2022-01-07] MEDS: SODIUM CHLORIDE 0.9% 1,000 ML IV SCH ×3 (08:18→16:24)
[2022-01-07] MEDS: INSULIN LISPRO 100 UNIT/ML SUBCUT SCH ×4 (09:10→22:23)
[2022-01-07] MEDS: amLODIPine 5 MG TABLET PO SCH (09:14)
[2022-01-07] MEDS: SOTALOL 80 MG TABLET PO SCH ×2 (09:17→23:11)
[2022-01-07] MEDS: GABAPENTIN 600 MG TABLET PO SCH ×3 (09:17→22:23)
[2022-01-07] MEDS: APIXABAN 5 MG TABLET PO SCH ×2 (09:17→22:23)
[2022-01-07] MEDS: METOCLOPRAMIDE 10 MG TABLET PO SCH ×4 (09:18→22:22)
[2022-01-07] MEDS: SIMVASTATIN 20 MG TABLET PO SCH (09:18)
[2022-01-07] MEDS: PANTOPRAZOLE 40 MG TABLET PO SCH (09:18)
[2022-01-07 13:18] LABS: % Iron Saturation 5.9 % (18-50)
[2022-01-07 13:24] LABS: Folate 14.96 NG/ML (5.38-24.0)
[2022-01-07] MEDS ORDERED: FERRIC GLUCONATE COMPLEX 125 MG in SODIUM CHLORIDE 0.9% 100 ML IV SCH (14:00)
[2022-01-07] MEDS: DOXYCYCLINE HYCLATE INJ 100 MG in SODIUM CHLORIDE 0.9% 100 ML IV SCH (16:18)
[2022-01-07] MEDS: FERRIC GLUCONATE COMPLEX 125 MG in SODIUM CHLORIDE 0.9% 100 ML IV SCH (22:23)
[2022-01-08] MEDS: DOXYCYCLINE HYCLATE INJ 100 MG in SODIUM CHLORIDE 0.9% 100 ML IV SCH ×2 (05:29→16:31)
[2022-01-08] MEDS: ACETAMINOPHEN 325 MG TABLET PO PRN ×3 (05:42→21:03)
[2022-01-08] MEDS: LEVALBUTEROL 1.25 MG/3 ML NEB RESP TX SCH ×3 (06:59→19:30)
[2022-01-08] MEDS: IPRATROPIUM 500 MCG/2.5 ML NEB RESP TX SCH ×3 (06:59→19:30)
[2022-01-08 07:40] LABS: Basophils % 0.1 % (0.0-0.8); Hematocrit 31.5 VOL% (35.7-47.0); Hemoglobin 9.8 GM/DL (12.0-16.0); Immature Granulocytes % 0.6 %; Immature Granulocytes Absolute 0.04 #; Lymphocytes # 0.8 10*3/uL (1.4-4.0); Lymphocytes % 12.5 % (21.3-54.2); Mean Corpuscular HGB Conc 31.1 GM/DL (32-36); Mean Corpuscular Volume 77.8 FL (87-102); Mean Platelet Volume 9.2 FL (9.6-12.0); Monocytes # 0.4 10*3/uL (0.11-0.8); Monocytes % 5.8 % (1.7-12.7); Platelet Count 269 T/CUMM (130-400); Red Blood Count 4.05 MC/CUMM (3.8-5.5); Red Cell Distribution Width 17.2 % (9.3-17.3); White Blood Count 6.7 T/CUMM (4-12)
[2022-01-08 07:53] LABS: Calcium 8.7 MG/DL (8.5-10.1); Osmolality,Calculated 276.7 MOS/KG (273-304); Potassium 4.2 MMOL/L (3.5-5.1)
[2022-01-08] MEDS: APIXABAN 5 MG TABLET PO SCH ×2 (09:09→21:03)
[2022-01-08] MEDS: METOCLOPRAMIDE 10 MG TABLET PO SCH ×4 (09:09→21:14)
[2022-01-08] MEDS: PIPERACILLIN/TAZOBACTAM 3,375 MG in SODIUM CHLORIDE 0.9% 100 ML IV SCH ×2 (09:09→17:33)
[2022-01-08] MEDS: GABAPENTIN 600 MG TABLET PO SCH ×3 (09:09→21:03)
[2022-01-08] MEDS: amLODIPine 5 MG TABLET PO SCH (09:09)
[2022-01-08] MEDS: INSULIN LISPRO 100 UNIT/ML SUBCUT SCH ×4 (09:10→21:03)
[2022-01-08] MEDS: SIMVASTATIN 20 MG TABLET PO SCH (09:10)
[2022-01-08] MEDS: PANTOPRAZOLE 40 MG TABLET PO SCH (09:10)
[2022-01-08] MEDS: SOTALOL 80 MG TABLET PO SCH ×2 (09:10→21:03)
[2022-01-08] MEDS ORDERED: MYLANTA/LIDO VISC/NYST 180 ML BOTTLE SWISH/SWAL PRN (09:59)
[2022-01-08] MEDS ORDERED: LEVALBUTEROL 1.25 MG/3 ML NEB RESP TX PRN (10:12)
[2022-01-08] MEDS: MYLANTA/LIDO VISC/NYST 180 ML BOTTLE SWISH/SWAL SCH ×3 (11:24→21:16)
[2022-01-08] MEDS: SODIUM CHLORIDE 0.9% 1,000 ML IV SCH (14:56)
[2022-01-08] MEDS: FERRIC GLUCONATE COMPLEX 125 MG in SODIUM CHLORIDE 0.9% 100 ML IV SCH (21:03)
[2022-01-09] MEDS: IPRATROPIUM 500 MCG/2.5 ML NEB RESP TX SCH ×4 (01:00→19:58)
[2022-01-09] MEDS: LEVALBUTEROL 1.25 MG/3 ML NEB RESP TX SCH ×4 (01:00→19:58)
[2022-01-09] MEDS: PIPERACILLIN/TAZOBACTAM 3,375 MG in SODIUM CHLORIDE 0.9% 100 ML IV SCH ×3 (01:00→16:18)
[2022-01-09 04:21] LABS: Basophils % 0.2 % (0.0-0.8); Hematocrit 30.6 VOL% (35.7-47.0); Hemoglobin 9.4 GM/DL (12.0-16.0); Immature Granulocytes % 0.7 %; Immature Granulocytes Absolute 0.07 #; Lymphocytes # 1.3 10*3/uL (1.4-4.0); Lymphocytes % 12.5 % (21.3-54.2); Mean Corpuscular HGB Conc 30.7 GM/DL (32-36); Mean Corpuscular Volume 78.9 FL (87-102); Mean Platelet Volume 9.6 FL (9.6-12.0); Monocytes # 0.6 10*3/uL (0.11-0.8); Monocytes % 5.7 % (1.7-12.7); Neutrophils % 80.9 % (38.7-73.9); Platelet Count 304 T/CUMM (130-400); Red Blood Count 3.88 MC/CUMM (3.8-5.5); Red Cell Distribution Width 17.2 % (9.3-17.3); White Blood Count 10.3 T/CUMM (4-12)
[2022-01-09 04:42] LABS: Osmolality,Calculated 277.2 MOS/KG (273-304); Potassium 3.7 MMOL/L (3.5-5.1)
[2022-01-09] MEDS: DOXYCYCLINE HYCLATE INJ 100 MG in SODIUM CHLORIDE 0.9% 100 ML IV SCH ×2 (05:03→15:37)
[2022-01-09] MEDS: MYLANTA/LIDO VISC/NYST 180 ML BOTTLE SWISH/SWAL SCH (07:57)
[2022-01-09] MEDS: METOCLOPRAMIDE 10 MG TABLET PO SCH ×4 (07:57→21:52)
[2022-01-09] MEDS: PANTOPRAZOLE 40 MG TABLET PO SCH (08:35)
[2022-01-09] MEDS: GABAPENTIN 600 MG TABLET PO SCH ×3 (08:35→21:51)
[2022-01-09] MEDS: SOTALOL 80 MG TABLET PO SCH ×2 (08:35→22:03)
[2022-01-09] MEDS: SIMVASTATIN 20 MG TABLET PO SCH (08:35)
[2022-01-09] MEDS: APIXABAN 5 MG TABLET PO SCH ×2 (08:35→21:51)
[2022-01-09] MEDS: amLODIPine 5 MG TABLET PO SCH (08:35)
[2022-01-09] MEDS: INSULIN LISPRO 100 UNIT/ML SUBCUT SCH ×4 (08:36→22:02)
[2022-01-09] MEDS: CLOTRIMAZOLE 10 MG TROCHE PO SCH ×3 (11:32→18:32)
[2022-01-09] MEDS: MICAFUNGIN 100 MG in SODIUM CHLORIDE 0.9% 100 ML IV SCH (13:36)
[2022-01-09 14:20] LABS: Mycoplasma pneumoniae Ab, IgG Negative (Negative); Mycoplasma pneumoniae Ab, IgM Negative (Negative)
[2022-01-09] MEDS: SODIUM CHLORIDE 0.9% 1,000 ML IV SCH (14:38)
[2022-01-09] MEDS: FERRIC GLUCONATE COMPLEX 125 MG in SODIUM CHLORIDE 0.9% 100 ML IV SCH (21:52)
[2022-01-09] MEDS: ACETAMINOPHEN 325 MG TABLET PO PRN (21:55)
[2022-01-10] MEDS: PIPERACILLIN/TAZOBACTAM 3,375 MG in SODIUM CHLORIDE 0.9% 100 ML IV SCH ×3 (02:03→19:17)
[2022-01-10] MEDS: CLOTRIMAZOLE 10 MG TROCHE PO SCH ×7 (02:10→21:16)
[2022-01-10] MEDS: SODIUM CHLORIDE 0.9% 1,000 ML IV SCH ×2 (04:25→23:20)
[2022-01-10] MEDS: DOXYCYCLINE HYCLATE INJ 100 MG in SODIUM CHLORIDE 0.9% 100 ML IV SCH ×2 (04:26→18:17)
[2022-01-10 04:52] LABS: Basophils % 0.2 % (0.0-0.8); Hematocrit 30.2 VOL% (35.7-47.0); Hemoglobin 9.1 GM/DL (12.0-16.0); Immature Granulocytes % 0.7 %; Immature Granulocytes Absolute 0.06 #; Lymphocytes # 1.3 10*3/uL (1.4-4.0); Lymphocytes % 15.3 % (21.3-54.2); Mean Corpuscular HGB Conc 30.1 GM/DL (32-36); Mean Corpuscular Volume 80.3 FL (87-102); Mean Platelet Volume 9.5 FL (9.6-12.0); Monocytes # 0.6 10*3/uL (0.11-0.8); Monocytes % 7.3 % (1.7-12.7); Neutrophils % 76.5 % (38.7-73.9); Platelet Count 332 T/CUMM (130-400); Red Blood Count 3.76 MC/CUMM (3.8-5.5); Red Cell Distribution Width 17.5 % (9.3-17.3); White Blood Count 8.4 T/CUMM (4-12)
[2022-01-10] MEDS: LEVALBUTEROL 1.25 MG/3 ML NEB RESP TX SCH ×3 (05:11→07:33)
[2022-01-10] MEDS: IPRATROPIUM 500 MCG/2.5 ML NEB RESP TX SCH (05:12)
[2022-01-10 05:16] LABS: Calcium 8.6 MG/DL (8.5-10.1); Osmolality,Calculated 282.1 MOS/KG (273-304); Potassium 3.5 MMOL/L (3.5-5.1)
[2022-01-10] MEDS: INSULIN LISPRO 100 UNIT/ML SUBCUT SCH ×5 (09:03→20:51)
[2022-01-10] MEDS: GABAPENTIN 600 MG TABLET PO SCH ×3 (09:04→20:48)
[2022-01-10] MEDS: METOCLOPRAMIDE 10 MG TABLET PO SCH ×4 (09:04→20:48)
[2022-01-10] MEDS: SIMVASTATIN 20 MG TABLET PO SCH (09:04)
[2022-01-10] MEDS: SOTALOL 80 MG TABLET PO SCH ×2 (09:04→20:48)
[2022-01-10] MEDS: PANTOPRAZOLE 40 MG TABLET PO SCH (09:04)
[2022-01-10] MEDS: amLODIPine 5 MG TABLET PO SCH (09:09)
[2022-01-10] MEDS: APIXABAN 5 MG TABLET PO SCH ×2 (09:13→20:48)
[2022-01-10] MEDS ORDERED: glipiZIDE 10 MG TABLET PO PRN (13:11)
[2022-01-10] MEDS: MICAFUNGIN 100 MG in SODIUM CHLORIDE 0.9% 100 ML IV SCH (13:18)
[2022-01-10] MEDS: metFORMIN 850 MG TABLET PO PRN ×2 (18:16→18:19)
[2022-01-10] MEDS: FERRIC GLUCONATE COMPLEX 125 MG in SODIUM CHLORIDE 0.9% 100 ML IV SCH (23:20)
[2022-01-11] MEDS: PIPERACILLIN/TAZOBACTAM 3,375 MG in SODIUM CHLORIDE 0.9% 100 ML IV SCH (02:00)
[2022-01-11 05:32] LABS: Basophils % 0.1 % (0.0-0.8); Hematocrit 28.7 VOL% (35.7-47.0); Hemoglobin 8.8 GM/DL (12.0-16.0); Immature Granulocytes % 0.9 %; Immature Granulocytes Absolute 0.06 #; Lymphocytes # 1.2 10*3/uL (1.4-4.0); Lymphocytes % 16.9 % (21.3-54.2); Mean Corpuscular HGB Conc 30.7 GM/DL (32-36); Mean Corpuscular Volume 79.7 FL (87-102); Mean Platelet Volume 9.3 FL (9.6-12.0); Monocytes # 0.5 10*3/uL (0.11-0.8); Monocytes % 7.7 % (1.7-12.7); Neutrophils % 74.4 % (38.7-73.9); Platelet Count 328 T/CUMM (130-400); Red Cell Distribution Width 17.7 % (9.3-17.3)
[2022-01-11 05:49] LABS: Calcium 8.6 MG/DL (8.5-10.1)
[2022-01-11] MEDS: CLOTRIMAZOLE 10 MG TROCHE PO SCH ×2 (06:10→09:07)
[2022-01-11] MEDS: DOXYCYCLINE HYCLATE INJ 100 MG in SODIUM CHLORIDE 0.9% 100 ML IV SCH (06:10)
[2022-01-11] MEDS: METOCLOPRAMIDE 10 MG TABLET PO SCH ×2 (09:07→12:26)
[2022-01-11] MEDS: INSULIN LISPRO 100 UNIT/ML SUBCUT SCH ×2 (09:07→12:28)
[2022-01-11] MEDS: APIXABAN 5 MG TABLET PO SCH (09:07)
[2022-01-11] MEDS: SOTALOL 80 MG TABLET PO SCH (09:07)
[2022-01-11] MEDS: PANTOPRAZOLE 40 MG TABLET PO SCH (09:08)
[2022-01-11] MEDS: metFORMIN 850 MG TABLET PO PRN ×2 (09:08→12:26)
[2022-01-11] MEDS: SIMVASTATIN 20 MG TABLET PO SCH (09:08)
[2022-01-11] MEDS: GABAPENTIN 600 MG TABLET PO SCH (09:08)
[2022-01-11] MEDS: amLODIPine 5 MG TABLET PO SCH (09:09)
[2022-01-11] MEDS: MICAFUNGIN 100 MG in SODIUM CHLORIDE 0.9% 100 ML IV SCH (12:26)
[2022-01-11] MEDS ORDERED: CLOTRIMAZOLE 10 MG TROCHE PO SCH (14:00)
[2022-01-11 14:40] VITALS: BP 117/64
== END 2022-01-11 16:20 | disposition home or self-care (01) | DRG 194 ==
LOC: EDBD → EDUNIT# → N.ED 19:02 → N.EDINP 22:15 → N.TELES 01-06 01:34
PROVIDERS: ADMIT Internal Medicine; ATTEND Internal Medicine

== ENCOUNTER 2022-02-17 10:13 | Observation (INO) ==
[2022-02-17] MEDS ORDERED: fentaNYL 100 MCG/2 ML VIAL IV STA (10:36)
[2022-02-17] MEDS ORDERED: ONDANSETRON 4 MG/2 ML VIAL IV ONE (10:36)
[2022-02-17] MEDS ORDERED: SODIUM CHLORIDE 0.9% 1,000 ML IV STA ×2 (10:36→12:04)
[2022-02-17] MEDS ORDERED: DILTIAZEM 25 MG/5 ML VIAL IV STA (10:36)
[2022-02-17 10:47] LABS: Basophils % 0.3 % (0.0-0.8); Hematocrit 42.2 VOL% (35.7-47.0); Hemoglobin 12.8 GM/DL (12.0-16.0); Immature Granulocytes % 0.6 %; Immature Granulocytes Absolute 0.09 #; Lymphocytes # 0.9 10*3/uL (1.4-4.0); Lymphocytes % 5.9 % (21.3-54.2); Mean Corpuscular HGB Conc 30.3 GM/DL (32-36); Mean Corpuscular Volume 80.4 FL (87-102); Mean Platelet Volume 8.5 FL (9.6-12.0); Monocytes # 0.5 10*3/uL (0.11-0.8); Neutrophils % 90.2 % (38.7-73.9); Platelet Count 409 T/CUMM (130-400); Red Blood Count 5.25 MC/CUMM (3.8-5.5); Red Cell Distribution Width 18.4 % (9.3-17.3); White Blood Count 15.1 T/CUMM (4-12)
[2022-02-17 10:56] LABS: INR 1.1; PT Patient Result 12.4 SECS (10.1-12.1)
[2022-02-17] MEDS ORDERED: DILTIAZEM INJ 100 MG in SODIUM CHLORIDE 0.9% 100 ML IV SCH (11:00)
[2022-02-17 11:06] LABS: Albumin 3.3 G/DL (3.4-5.0); Calcium 9.6 MG/DL (8.5-10.1); Potassium 4.4 MMOL/L (3.5-5.1); Total Protein 7.5 G/DL (6.4-8.2)
[2022-02-17] MEDS ORDERED: VANCOMYCIN INJ 1,000 MG in SODIUM CHLORIDE 0.9% 250 ML IV STA (11:54)
[2022-02-17] MEDS ORDERED: PIPERACILLIN/TAZOBACTAM 3,375 MG in SODIUM CHLORIDE 0.9% 100 ML IV STA (11:54)
[2022-02-17] MEDS ORDERED: VANCOMYCIN INJ 750 MG in SODIUM CHLORIDE 0.9% 250 ML IV STA (11:58)
[2022-02-17] MEDS ORDERED: GLUCAGON 1 MG VIAL IM PRN (12:37)
[2022-02-17] MEDS ORDERED: ONDANSETRON 4 MG/2 ML VIAL IV PRN (12:37)
[2022-02-17] MEDS ORDERED: METOPROLOL SUCCINATE XL 25 MG TABLET PO PRN (12:41)
[2022-02-17] MEDS ORDERED: glipiZIDE 10 MG TABLET PO PRN (12:41)
[2022-02-17] MEDS ORDERED: DEXTROSE 10% 250 ML BAG IV PRN (12:43)
[2022-02-17] MEDS ORDERED: AZITHROMYCIN INJ 500 MG in SODIUM CHLORIDE 0.9% 250 ML IV SCH (14:00)
[2022-02-17] MEDS ORDERED: cefTRIAXone 1,000 MG in SODIUM CHLORIDE 0.9% 100 ML IV SCH (14:00)
[2022-02-17] MEDS: DILTIAZEM CD 120 MG CAPSULE PO SCH ×2 (14:35→20:35)
[2022-02-17] MEDS ORDERED: INSULIN GLARGINE 100 UNIT/ML SUBCUT PRN (14:39)
[2022-02-17] MEDS: METOCLOPRAMIDE 10 MG TABLET PO SCH ×2 (17:13→20:35)
[2022-02-17] MEDS: SODIUM CHLORIDE 0.9% 1,000 ML IV SCH ×2 (17:15→21:59)
[2022-02-17] MEDS: INSULIN LISPRO 100 UNIT/ML SUBCUT SCH ×2 (17:15→20:36)
[2022-02-17 18:56] LABS: Bilirubin,Urine Negative (Negative); Blood, Urine Negative (Negative); Glucose,Urine (UA) 50 mg/dL (Negative); Ketones,Urine 80 mg/dL (Negative); Mucus,Urine Occasional /LPF (Occasional); Nitrite,Urine Negative (Negative); Protein,Urine Negative (Negative); RBC,Urine 4 /HPF (0-4); Squamous Epithelial Cell,Urine Occasional /HPF (0-10); Urine Appearance Slightly Hazy (Clear); Urine Color Yellow (Yellow); Urine Specific Gravity 1.029 (1.001-1.035); Urine Urobilinogen < 2.0 eU/dL (<2.0)
[2022-02-17] MEDS: APIXABAN 5 MG TABLET PO SCH (20:35)
[2022-02-17] MEDS: GABAPENTIN 600 MG TABLET PO SCH (20:36)
[2022-02-18] MEDS: SODIUM CHLORIDE 0.9% 1,000 ML IV SCH ×3 (02:10→15:58)
[2022-02-18 04:44] LABS: Basophils % 0.4 % (0.0-0.8); Hematocrit 32.9 VOL% (35.7-47.0); Hemoglobin 10.3 GM/DL (12.0-16.0); Immature Granulocytes % 0.3 %; Immature Granulocytes Absolute 0.02 #; Lymphocytes # 0.9 10*3/uL (1.4-4.0); Mean Corpuscular HGB Conc 31.3 GM/DL (32-36); Mean Corpuscular Volume 78.9 FL (87-102); Mean Platelet Volume 8.7 FL (9.6-12.0); Monocytes # 0.6 10*3/uL (0.11-0.8); Monocytes % 7.5 % (1.7-12.7); Neutrophils % 79.8 % (38.7-73.9); Platelet Count 324 T/CUMM (130-400); Red Blood Count 4.17 MC/CUMM (3.8-5.5); Red Cell Distribution Width 17.9 % (9.3-17.3); White Blood Count 7.8 T/CUMM (4-12)
[2022-02-18 05:04] LABS: Calcium 8.6 MG/DL (8.5-10.1); Osmolality,Calculated 280.5 MOS/KG (273-304); Potassium 4.1 MMOL/L (3.5-5.1)
[2022-02-18] MEDS ORDERED: PRAVASTATIN 40 MG TABLET PO SCH (09:00)
[2022-02-18] MEDS ORDERED: SOTALOL 80 MG TABLET PO SCH ×2 (09:00→21:00)
[2022-02-18] MEDS ORDERED: PANTOPRAZOLE 40 MG TABLET PO SCH (09:00)
[2022-02-18] MEDS: DILTIAZEM CD 120 MG CAPSULE PO SCH (10:49)
[2022-02-18] MEDS: APIXABAN 5 MG TABLET PO SCH (10:49)
[2022-02-18] MEDS: GABAPENTIN 600 MG TABLET PO SCH ×2 (10:49→15:38)
[2022-02-18] MEDS: METOCLOPRAMIDE 10 MG TABLET PO SCH ×2 (10:49→11:21)
[2022-02-18] MEDS: INSULIN LISPRO 100 UNIT/ML SUBCUT SCH ×2 (11:23→15:58)
[2022-02-18 15:40] VITALS: BP 110/58
== END 2022-02-18 15:52 | disposition home or self-care (01) ==
LOC: N.ED 10:13 → N.EDINP 10:13 → N.TELEN 14:19
PROVIDERS: ADMIT Internal Medicine; ATTEND Internal Medicine

== ENCOUNTER 2022-03-13 17:22 | Inpatient (IN) ==
[2022-03-13] MEDS ORDERED: ONDANSETRON 4 MG/2 ML VIAL IV STA (18:02)
[2022-03-13] MEDS ORDERED: MORPHINE 2 MG/1 ML SYRINGE IV STA (18:02)
[2022-03-13] MEDS ORDERED: SODIUM CHLORIDE 0.9% 1,000 ML IV STA ×3 (18:02→22:40)
[2022-03-13] MEDS ORDERED: DIGOXIN 0.5 MG/2 ML AMP IV STA (18:07)
[2022-03-13 18:08] LABS: Basophils % 0.3 % (0.0-0.8); Hematocrit 40.3 VOL% (35.7-47.0); Hemoglobin 12.3 GM/DL (12.0-16.0); Immature Granulocytes % 0.6 %; Immature Granulocytes Absolute 0.07 #; Lymphocytes # 1.1 10*3/uL (1.4-4.0); Lymphocytes % 9.1 % (21.3-54.2); Mean Corpuscular HGB Conc 30.5 GM/DL (32-36); Mean Corpuscular Volume 81.1 FL (87-102); Mean Platelet Volume 8.6 FL (9.6-12.0); Monocytes # 0.6 10*3/uL (0.11-0.8); Monocytes % 5.1 % (1.7-12.7); Neutrophils % 84.9 % (38.7-73.9); Platelet Count 418 T/CUMM (130-400); Red Blood Count 4.97 MC/CUMM (3.8-5.5); Red Cell Distribution Width 17.9 % (9.3-17.3); White Blood Count 11.9 T/CUMM (4-12)
[2022-03-13 18:41] LABS: Albumin 3.2 G/DL (3.4-5.0); Calcium 9.2 MG/DL (8.5-10.1); Osmolality,Calculated 281.5 MOS/KG (273-304); Potassium 4.9 MMOL/L (3.5-5.1); Thyroid Stimulating Hormone 4.03 uIU/ml (0.358-3.74)
[2022-03-13] MEDS ORDERED: DILTIAZEM 50 MG/10 ML VIAL IV STA (18:47)
[2022-03-13] MEDS ORDERED: INSULIN REGULAR 100 UNIT/ML IV STA ×2 (20:01→22:40)
[2022-03-13] MEDS ORDERED: DILTIAZEM INJ 100 MG in SODIUM CHLORIDE 0.9% 100 ML IV SCH (22:00)
[2022-03-13] MEDS ORDERED: ASPIRIN CHEW 81 MG TABLET PO STA (22:03)
[2022-03-13] MEDS ORDERED: AMIODARONE 450 MG/9 ML VIAL IV ONE (22:23)
[2022-03-13] MEDS ORDERED: AMIODARONE INJ 450 MG in DEXTROSE 5% 241 ML IV SCH (22:30)
[2022-03-14] MEDS ORDERED: SODIUM CHLORIDE 0.9% 1,000 ML IV STA (01:00)
[2022-03-14 01:27] LABS: Calcium 7.9 MG/DL (8.5-10.1); Osmolality,Calculated 281.2 MOS/KG (273-304); Potassium 4.8 MMOL/L (3.5-5.1)
[2022-03-14 01:45] LABS: ABG Base Excess -13.5 MMOL/L (-2.5-2.5); ABG Oxygen Saturation 97.7 % (95-100); ABG PCO2 25.5 MM HG (35-48); ABG PH 7.281 (7.35-7.45)
[2022-03-14] MEDS ORDERED: SODIUM CHLORIDE 0.9% IV PRN (01:59)
[2022-03-14] MEDS ORDERED: SODIUM PHOSPHATE IV PRN (01:59)
[2022-03-14] MEDS ORDERED: SODIUM BICARB INJ 100 MEQ in STERILE WATER INJ 400 ML IV PRN (01:59)
[2022-03-14] MEDS ORDERED: INSULIN REGULAR 100 UNIT/ML IV ONE ×2 (01:59→04:15)
[2022-03-14] MEDS ORDERED: MAGNESIUM SULF RIDER 4 GM/100 ML PREMIX IV PRN (02:00)
[2022-03-14] MEDS ORDERED: INSULIN REGULAR DRIP 100 ML IV SCH (02:00)
[2022-03-14] MEDS ORDERED: MAGNESIUM SULF RIDER 2 GM/50 ML PREMIX IV PRN (02:00)
[2022-03-14] MEDS ORDERED: DEXTROSE 10% 250 ML BAG IV PRN ×2 (02:11)
[2022-03-14] MEDS ORDERED: SODIUM CHLORIDE 0.9% 1,000 ML IV SCH ×2 (05:00→07:00)
[2022-03-14] MEDS ORDERED: SODIUM CHLORIDE 0.9% 1,000 ML IV ONE (05:15)
[2022-03-14 05:41] LABS: Basophils % 0.3 % (0.0-0.8); Hematocrit 32.7 VOL% (35.7-47.0); Hemoglobin 10.1 GM/DL (12.0-16.0); Immature Granulocytes % 0.6 %; Immature Granulocytes Absolute 0.05 #; Mean Corpuscular HGB Conc 30.9 GM/DL (32-36); Mean Corpuscular Volume 80.7 FL (87-102); Mean Platelet Volume 8.7 FL (9.6-12.0); Monocytes # 0.7 10*3/uL (0.11-0.8); Monocytes % 8.8 % (1.7-12.7); Neutrophils % 78.3 % (38.7-73.9); Platelet Count 328 T/CUMM (130-400); Red Blood Count 4.05 MC/CUMM (3.8-5.5); Red Cell Distribution Width 17.4 % (9.3-17.3); White Blood Count 7.9 T/CUMM (4-12)
[2022-03-14 06:00] LABS: Calcium 7.9 MG/DL (8.5-10.1); Osmolality,Calculated 283.7 MOS/KG (273-304); Phosphorous 1.7 MG/DL (2.5-4.9); Potassium 3.8 MMOL/L (3.5-5.1)
[2022-03-14] MEDS: ONDANSETRON 4 MG/2 ML VIAL IV PRN ×2 (06:11→10:27)
[2022-03-14] MEDS: MORPHINE 2 MG/1 ML SYRINGE IV PRN ×4 (06:15→22:37)
[2022-03-14] MEDS: DEXT 5% NACL 0.45% KCL 20 MEQ 20 MEQ/1,000 ML BAG IV SCH ×2 (07:35→13:25)
[2022-03-14 07:56] LABS: Arterial Base Excess iSTAT -8 MMOL/L (-2.5-2.5); Arterial Bicarbonate iSTAT 16.5 MMOL/L (20-26); Arterial O2 Saturation iSTAT 97 % (95-100); Arterial PCO2 iSTAT 30 MM HG (35-48); Arterial PO2 iSTAT 96 MM HG (80-95); Arterial Total CO2 iSTAT 17 MMO/L (23-27); Arterial pH iSTAT 7.349 (7.35-7.45)
[2022-03-14] MEDS ORDERED: POTASSIUM PHOSPHATE 30 MMOL in SODIUM CHLORIDE 0.9% 250 ML IV ONE (09:01)
[2022-03-14 11:23] LABS: Calcium 8.2 MG/DL (8.5-10.1); Osmolality,Calculated 278.8 MOS/KG (273-304); Potassium 3.9 MMOL/L (3.5-5.1)
[2022-03-14] MEDS ORDERED: LACTATED RINGERS 1,000 ML IV ONE (11:53)
[2022-03-14 14:25] LABS: Calcium 8.2 MG/DL (8.5-10.1); Osmolality,Calculated 274.7 MOS/KG (273-304); Potassium 4.2 MMOL/L (3.5-5.1)
[2022-03-14] MEDS ORDERED: LACTATED RINGERS 1,000 ML IV SCH (15:00)
[2022-03-14] MEDS ORDERED: GLUCAGON 1 MG VIAL IM PRN (15:07)
[2022-03-14] MEDS ORDERED: DEXTROSE 50% 25 GM/50 ML SYRINGE IV PRN (15:07)
[2022-03-14] MEDS: INSULIN LISPRO 100 UNIT/ML SUBCUT SCH ×3 (16:31→23:22)
[2022-03-14 17:36] LABS: Calcium 8.5 MG/DL (8.5-10.1); Osmolality,Calculated 274.1 MOS/KG (273-304); Potassium 4.5 MMOL/L (3.5-5.1)
[2022-03-14] MEDS ORDERED: SODIUM CHLORIDE 0.45% 1,000 ML IV SCH (19:00)
[2022-03-14] MEDS: GABAPENTIN 600 MG TABLET PO SCH (20:38)
[2022-03-14] MEDS: SOTALOL 80 MG TABLET PO SCH (20:38)
[2022-03-14] MEDS: METOCLOPRAMIDE 5 MG TABLET PO SCH (20:38)
[2022-03-14 21:37] LABS: Calcium 8.3 MG/DL (8.5-10.1); Osmolality,Calculated 278.2 MOS/KG (273-304); Potassium 4.7 MMOL/L (3.5-5.1)
[2022-03-14] MEDS ORDERED: INSULIN REGULAR DRIP 100 ML IV PRN (21:58)
[2022-03-15] MEDS: INSULIN LISPRO 100 UNIT/ML SUBCUT SCH ×6 (03:10→23:26)
[2022-03-15] MEDS ORDERED: DEXTROSE 5% LACTATED RINGERS 1,000 ML IV SCH (03:30)
[2022-03-15] MEDS: MORPHINE 2 MG/1 ML SYRINGE IV PRN (03:51)
[2022-03-15 03:53] LABS: Arterial Base Excess iSTAT -4 MMOL/L (-2.5-2.5); Arterial Bicarbonate iSTAT 20.2 MMOL/L (20-26); Arterial O2 Saturation iSTAT 96 % (95-100); Arterial PCO2 iSTAT 32 MM HG (35-48); Arterial PO2 iSTAT 83 MM HG (80-95); Arterial Total CO2 iSTAT 21 MMO/L (23-27); Arterial pH iSTAT 7.412 (7.35-7.45)
[2022-03-15 04:10] LABS: Basophils % 0.4 % (0.0-0.8); Hematocrit 34.9 VOL% (35.7-47.0); Immature Granulocytes % 0.3 %; Immature Granulocytes Absolute 0.02 #; Lymphocytes # 1.3 10*3/uL (1.4-4.0); Lymphocytes % 16.6 % (21.3-54.2); Mean Corpuscular HGB Conc 31.5 GM/DL (32-36); Mean Corpuscular Volume 78.4 FL (87-102); Mean Platelet Volume 8.4 FL (9.6-12.0); Monocytes # 0.7 10*3/uL (0.11-0.8); Monocytes % 8.6 % (1.7-12.7); Neutrophils % 74.1 % (38.7-73.9); Platelet Count 397 T/CUMM (130-400); Red Blood Count 4.45 MC/CUMM (3.8-5.5); Red Cell Distribution Width 17.6 % (9.3-17.3); White Blood Count 7.5 T/CUMM (4-12)
[2022-03-15 04:24] LABS: Calcium 8.2 MG/DL (8.5-10.1); Osmolality,Calculated 276.4 MOS/KG (273-304); Phosphorous 1.6 MG/DL (2.5-4.9); Potassium 3.8 MMOL/L (3.5-5.1)
[2022-03-15] MEDS ORDERED: ALPRAZolam 0.5 MG TABLET PO PRN (07:31)
[2022-03-15] MEDS: ENOXAPARIN 60 MG/0.6 ML SYRINGE SUBCUT SCH ×2 (07:50→20:13)
[2022-03-15] MEDS: METOCLOPRAMIDE 5 MG TABLET PO SCH ×4 (07:50→20:14)
[2022-03-15 08:30] LABS: Calcium 8.3 MG/DL (8.5-10.1); Osmolality,Calculated 275.8 MOS/KG (273-304); Potassium 4.3 MMOL/L (3.5-5.1)
[2022-03-15] MEDS ORDERED: POTASSIUM PHOSPHATE 30 MMOL in SODIUM CHLORIDE 0.9% 250 ML IV ONE (08:30)
[2022-03-15] MEDS: SOTALOL 80 MG TABLET PO SCH ×2 (09:02→20:15)
[2022-03-15] MEDS: GABAPENTIN 600 MG TABLET PO SCH ×3 (09:02→20:14)
[2022-03-15 12:22] LABS: Calcium 8.1 MG/DL (8.5-10.1); Osmolality,Calculated 274.5 MOS/KG (273-304)
[2022-03-15] MEDS: LACTATED RINGERS 1,000 ML IV SCH (15:55)
[2022-03-15] MEDS: SIMVASTATIN 20 MG TABLET PO SCH (20:13)
[2022-03-16] MEDS: METOPROLOL TARTRATE 5 MG/5 ML VIAL IV PRN ×2 (01:25→11:40)
[2022-03-16] MEDS: INSULIN LISPRO 100 UNIT/ML SUBCUT SCH ×5 (03:27→20:01)
[2022-03-16 04:21] LABS: Basophils % 0.5 % (0.0-0.8); Hematocrit 38.3 VOL% (35.7-47.0); Hemoglobin 11.6 GM/DL (12.0-16.0); Immature Granulocytes % 0.5 %; Immature Granulocytes Absolute 0.03 #; Lymphocytes # 0.8 10*3/uL (1.4-4.0); Lymphocytes % 13.4 % (21.3-54.2); Mean Corpuscular HGB Conc 30.3 GM/DL (32-36); Mean Corpuscular Volume 80.3 FL (87-102); Mean Platelet Volume 8.4 FL (9.6-12.0); Monocytes # 0.5 10*3/uL (0.11-0.8); Monocytes % 7.8 % (1.7-12.7); Neutrophils % 77.8 % (38.7-73.9); Platelet Count 386 T/CUMM (130-400); Red Blood Count 4.77 MC/CUMM (3.8-5.5); White Blood Count 5.9 T/CUMM (4-12)
[2022-03-16 04:37] LABS: Calcium 8.4 MG/DL (8.5-10.1); Osmolality,Calculated 277.5 MOS/KG (273-304); Potassium 3.4 MMOL/L (3.5-5.1)
[2022-03-16] MEDS: POTASSIUM CHLORIDE RIDER 10 MEQ/100 ML PREMIX IV PRN ×3 (04:52→06:52)
[2022-03-16] MEDS: LACTATED RINGERS 1,000 ML IV SCH ×3 (06:16→22:18)
[2022-03-16] MEDS: GABAPENTIN 600 MG TABLET PO SCH ×3 (08:20→20:48)
[2022-03-16] MEDS: SOTALOL 80 MG TABLET PO SCH ×2 (08:20→20:48)
[2022-03-16] MEDS: METOCLOPRAMIDE 5 MG TABLET PO SCH ×4 (08:20→20:48)
[2022-03-16] MEDS: ENOXAPARIN 60 MG/0.6 ML SYRINGE SUBCUT SCH (08:20)
[2022-03-16] MEDS: SIMVASTATIN 20 MG TABLET PO SCH (20:48)
[2022-03-17] MEDS: INSULIN LISPRO 100 UNIT/ML SUBCUT SCH ×6 (00:06→16:35)
[2022-03-17] MEDS: MORPHINE 2 MG/1 ML SYRINGE IV PRN ×2 (00:32→06:30)
[2022-03-17 06:27] LABS: Calcium 8.3 MG/DL (8.5-10.1); Osmolality,Calculated 268.8 MOS/KG (273-304); Potassium 4.3 MMOL/L (3.5-5.1)
[2022-03-17] MEDS: METOCLOPRAMIDE 5 MG TABLET PO SCH ×3 (08:10→16:38)
[2022-03-17] MEDS ORDERED: LORazepam 1 MG TABLET PO ONE (08:36)
[2022-03-17] MEDS: GABAPENTIN 600 MG TABLET PO SCH ×2 (08:45→16:38)
[2022-03-17] MEDS: SOTALOL 80 MG TABLET PO SCH (08:45)
[2022-03-17 13:53] LABS: Lymphocytes,Pleural Fluid 70 %; Monocytes,Pleural Fluid 7 %; Neutrophils,Pleural Fluid 23 %; RBC,Pleural Fluid 46 T/CUMM
[2022-03-17 14:04] LABS: LDH,Body Fluid 105 U/L; Total Protein,Body Fluid 3.2 G/DL
[2022-03-17 14:17] LABS: Glucose,Pleural Fluid 177 MG/DL
[2022-03-17] MEDS: LACTATED RINGERS 1,000 ML IV SCH (17:02)
[2022-03-17 20:59] VITALS: BP 122/78
== END 2022-03-17 18:24 | disposition home or self-care (01) | DRG 308 ==
LOC: N.ED 17:22 → SUATTDRO 03-14 01:59 → N.EDINP 03-14 01:59 → N.CC 03-14 03:50 → N.TELEN 03-16 11:29
PROVIDERS: ADMIT Internal Medicine; ATTEND Internal Medicine

== ENCOUNTER 2022-03-18 02:41 | Inpatient (IN) ==
[2022-03-18] MEDS ORDERED: SODIUM CHLORIDE 0.9% 500 ML IV STA ×2 (03:03→03:54)
[2022-03-18] MEDS ORDERED: DILTIAZEM 50 MG/10 ML VIAL IV STA (03:03)
[2022-03-18] MEDS ORDERED: PANTOPRAZOLE 40 MG VIAL IV STA (03:03)
[2022-03-18] MEDS ORDERED: ONDANSETRON 4 MG/2 ML VIAL IV STA (03:03)
[2022-03-18] MEDS ORDERED: HYDROmorphone 1 MG/1 ML SYRINGE IV STA (03:03)
[2022-03-18 03:29] LABS: Basophils % 0.3 % (0.0-0.8); Eosinophils # 0.2 10*3/uL (0.0-0.87); Eosinophils % 3.1 % (0.00-10.9); Hemoglobin 12.2 GM/DL (12.0-16.0); Immature Granulocytes % 0.4 %; Immature Granulocytes Absolute 0.03 #; Lymphocytes # 0.8 10*3/uL (1.4-4.0); Lymphocytes % 11.2 % (21.3-54.2); Mean Corpuscular HGB Conc 31.3 GM/DL (32-36); Mean Corpuscular Volume 79.3 FL (87-102); Mean Platelet Volume 8.2 FL (9.6-12.0); Monocytes # 0.5 10*3/uL (0.11-0.8); Monocytes % 6.8 % (1.7-12.7); Neutrophils % 78.2 % (38.7-73.9); Platelet Count 422 T/CUMM (130-400); Red Blood Count 4.92 MC/CUMM (3.8-5.5); Red Cell Distribution Width 18.3 % (9.3-17.3); White Blood Count 6.8 T/CUMM (4-12)
[2022-03-18] MEDS ORDERED: DILTIAZEM INJ 100 MG in SODIUM CHLORIDE 0.9% 100 ML IV SCH (03:30)
[2022-03-18] MEDS ORDERED: SODIUM CHLORIDE 0.9% 1,000 ML IV STA (03:30)
[2022-03-18 03:45] LABS: Alanine Aminotransferase 12 U/L (13-56); Albumin 2.7 G/DL (3.4-5.0); Alkaline Phosphatase 289 U/L (45-117); Amylase 9 U/L (25-115); Aspartate Amino Transferase 33 U/L (0-37); Blood Urea Nitrogen 8 MG/DL (7-18); Calcium 8.6 MG/DL (8.5-10.1); Carbon Dioxide 23 MMOL/L (21-32); Chloride 102 MMOL/L (98-107); Glucose 295 MG/DL (74-106); Osmolality,Calculated 283.7 MOS/KG (273-304); Potassium 4.1 MMOL/L (3.5-5.1); Sodium 138 MMOL/L (136-145)
[2022-03-18] MEDS ORDERED: INSULIN REGULAR 100 UNIT/ML SUBCUT STA (03:48)
[2022-03-18] MEDS ORDERED: ONDANSETRON 4 MG/2 ML VIAL IV PRN (04:11)
[2022-03-18] MEDS ORDERED: ACETAMINOPHEN 325 MG TABLET PO PRN (04:11)
[2022-03-18] MEDS ORDERED: MAGNESIUM SULF RIDER 2 GM/50 ML PREMIX IV ONE (06:04)
[2022-03-18 06:19] LABS: Mucus,Urine Occasional /LPF (Occasional); RBC,Urine 1 /HPF (0-4); Squamous Epithelial Cell,Urine Occasional /HPF (0-10)
[2022-03-18 06:23] LABS: Bilirubin,Urine Small mg/dL (Negative); Blood, Urine Negative (Negative); Glucose,Urine (UA) 250 mg/dL (Negative); Ketones,Urine >160 mg/dL (Negative); Nitrite,Urine Negative (Negative); Protein,Urine 30 mg/dL (Negative); Urine Appearance Clear (Clear); Urine Color Yellow (Yellow); Urine Specific Gravity > 1.030 (1.001-1.035); Urine Urobilinogen 0.2 eU/dL (<2.0)
[2022-03-18] MEDS: INSULIN REGULAR 100 UNIT/ML SUBCUT SCH ×4 (07:41→21:28)
[2022-03-18] MEDS: METOCLOPRAMIDE 10 MG TABLET PO SCH ×4 (07:56→21:28)
[2022-03-18] MEDS ORDERED: DILTIAZEM 30 MG TABLET PO PRN (08:37)
[2022-03-18] MEDS: GABAPENTIN 300 MG CAPSULE PO SCH ×3 (08:59→21:28)
[2022-03-18] MEDS ORDERED: SOTALOL 80 MG TABLET PO SCH ×3 (09:00→21:00)
[2022-03-18] MEDS: SIMVASTATIN 20 MG TABLET PO SCH (21:28)
[2022-03-18] MEDS: SOTALOL 80 MG TABLET PO SCH (21:28)
[2022-03-18] MEDS ORDERED: DILTIAZEM 50 MG/10 ML VIAL IV ONE (22:24)
[2022-03-19 05:49] LABS: Basophils % 0.3 % (0.0-0.8); Immature Granulocytes % 0.4 %; Immature Granulocytes Absolute 0.03 #; Lymphocytes % 15.2 % (21.3-54.2); Mean Corpuscular HGB Conc 31.4 GM/DL (32-36); Mean Corpuscular Volume 79.5 FL (87-102); Mean Platelet Volume 8.5 FL (9.6-12.0); Monocytes # 0.6 10*3/uL (0.11-0.8); Monocytes % 8.4 % (1.7-12.7); Neutrophils % 75.7 % (38.7-73.9); Platelet Count 390 T/CUMM (130-400); Red Cell Distribution Width 18.2 % (9.3-17.3); White Blood Count 6.7 T/CUMM (4-12)
[2022-03-19 06:13] LABS: Albumin 2.5 G/DL (3.4-5.0); Bilirubin,Total 0.5 MG/DL (0.20-1.00); Calcium 8.4 MG/DL (8.5-10.1); Potassium 3.7 MMOL/L (3.5-5.1); Total Protein 5.8 G/DL (6.4-8.2)
[2022-03-19] MEDS ORDERED: clonazePAM 0.5 MG TABLET PO PRN (07:00)
[2022-03-19] MEDS: INSULIN REGULAR 100 UNIT/ML SUBCUT SCH ×4 (08:51→21:10)
[2022-03-19] MEDS: METOCLOPRAMIDE 10 MG TABLET PO SCH ×3 (08:54→16:04)
[2022-03-19] MEDS: SOTALOL 80 MG TABLET PO SCH ×2 (08:55→21:13)
[2022-03-19] MEDS: GABAPENTIN 300 MG CAPSULE PO SCH ×3 (08:56→21:11)
[2022-03-19] MEDS: DILTIAZEM CD 120 MG CAPSULE PO SCH (11:46)
[2022-03-19] MEDS: POLYETHYLENE GLYCOL POWDER 17 GM PACK PO SCH (21:09)
[2022-03-19] MEDS: PANTOPRAZOLE 40 MG VIAL IV SCH (21:10)
[2022-03-19] MEDS: SIMVASTATIN 20 MG TABLET PO SCH (21:11)
[2022-03-20 06:04] LABS: Calcium 8.3 MG/DL (8.5-10.1); Osmolality,Calculated 271.2 MOS/KG (273-304); Potassium 4.1 MMOL/L (3.5-5.1)
[2022-03-20] MEDS: LACTATED RINGERS 1,000 ML IV SCH (08:53)
[2022-03-20] MEDS ORDERED: KETAMINE 500 MG/10 ML VIAL ONE (09:17)
[2022-03-20] MEDS ORDERED: MIDAZOLAM 2 MG/2 ML VIAL ONE (09:17)
[2022-03-20] MEDS ORDERED: ESMOLOL 100 MG/10 ML VIAL IV ONE (09:39)
[2022-03-20] MEDS ORDERED: DILTIAZEM 50 MG/10 ML VIAL IV ONE (10:16)
[2022-03-20] MEDS ORDERED: FUROSEMIDE 40 MG/4 ML VIAL ONE (10:46)
[2022-03-20] MEDS ORDERED: DILTIAZEM 25 MG/5 ML VIAL IV ONE (10:55)
[2022-03-20 11:29] LABS: Bacteria,Urine Occasional /HPF (Few); Bilirubin,Urine Negative (Negative); Blood, Urine Negative (Negative); Glucose,Urine (UA) 500 mg/dL (Negative); Hyaline Casts,Urine 3 /LPF (0-3); Ketones,Urine >160 mg/dL (Negative); Mucus,Urine Occasional /LPF (Occasional); Nitrite,Urine Negative (Negative); Protein,Urine Negative (Negative); RBC,Urine <1 /HPF (0-4); Squamous Epithelial Cell,Urine Occasional /HPF (0-10); Urine Appearance Clear (Clear); Urine Color Yellow (Yellow); Urine Specific Gravity 1.025 (1.001-1.035); Urine Urobilinogen 0.2 eU/dL (<2.0)
[2022-03-20 11:57] LABS: Basophils % 0.3 % (0.0-0.8); Hematocrit 37.6 VOL% (35.7-47.0); Hemoglobin 11.6 GM/DL (12.0-16.0); Immature Granulocytes % 0.5 %; Immature Granulocytes Absolute 0.05 #; Lymphocytes # 0.4 10*3/uL (1.4-4.0); Lymphocytes % 4.2 % (21.3-54.2); Mean Corpuscular HGB Conc 30.9 GM/DL (32-36); Mean Platelet Volume 8.5 FL (9.6-12.0); Monocytes # 0.3 10*3/uL (0.11-0.8); Monocytes % 2.8 % (1.7-12.7); Neutrophils % 92.2 % (38.7-73.9); Platelet Count 323 T/CUMM (130-400); Red Blood Count 4.64 MC/CUMM (3.8-5.5); Red Cell Distribution Width 18.7 % (9.3-17.3); White Blood Count 9.6 T/CUMM (4-12)
[2022-03-20] MEDS: INSULIN REGULAR 100 UNIT/ML SUBCUT SCH ×4 (12:01→20:13)
[2022-03-20] MEDS: FUROSEMIDE 40 MG/4 ML VIAL IV ONE ×2 (12:02→12:13)
[2022-03-20] MEDS: PIPERACILLIN/TAZOBACTAM 3,375 MG in SODIUM CHLORIDE 0.9% 100 ML IV SCH ×2 (12:10→20:24)
[2022-03-20] MEDS: GABAPENTIN 300 MG CAPSULE PO SCH ×3 (12:11→20:13)
[2022-03-20] MEDS: POLYETHYLENE GLYCOL POWDER 17 GM PACK PO SCH ×3 (12:11→20:13)
[2022-03-20 12:23] LABS: Lymphocytes 1 % (20-55); Total Cells Counted 100
[2022-03-20 12:24] LABS: Anisocytosis 1+; Macrocytosis Slight; Microcytosis 1+
[2022-03-20 12:25] LABS: Acanthocytes Few; Hypochromia Slight; Platelet Estimate Adequate
[2022-03-20 12:41] LABS: Chloride 100 MMOL/L (98-107); Potassium 4.7 MMOL/L (3.5-5.1); Sodium 134 MMOL/L (136-145)
[2022-03-20 12:43] LABS: Calcium 7.5 MG/DL (8.5-10.1)
[2022-03-20 12:44] LABS: Carbon Dioxide 21 MMOL/L (21-32)
[2022-03-20 12:45] LABS: Blood Urea Nitrogen 11 MG/DL (7-18); Glucose 337 MG/DL (74-106); Osmolality,Calculated 279.2 MOS/KG (273-304)
[2022-03-20 12:55] LABS: High Sensitive Troponin I* 9.6 ng/L (0-54)
[2022-03-20] MEDS: DILTIAZEM CD 120 MG CAPSULE PO SCH (12:58)
[2022-03-20] MEDS: SOTALOL 80 MG TABLET PO SCH ×2 (12:58→20:12)
[2022-03-20] MEDS: PANTOPRAZOLE 40 MG VIAL IV SCH ×2 (12:59→20:25)
[2022-03-20] MEDS ORDERED: diphenhydrAMINE CAP 50 MG CAPSULE PO ONE (13:25)
[2022-03-20] MEDS ORDERED: DIAZEPAM 5 MG TABLET PO ONE (13:25)
[2022-03-20 14:07] LABS: ABG Base Excess -1.5 MMOL/L (-2.5-2.5); ABG Oxygen Saturation 88.8 % (95-100); ABG PCO2 30.2 MM HG (35-48); ABG PH 7.459 (7.35-7.45); ABG PO2 58.8 MM HG (80-95); ABG TCO2 18.9 MMOL/L (23-27)
[2022-03-20 14:16] LABS: INR 1.2; PT Patient Result 13.2 SECS (10.1-12.1)
[2022-03-20] MEDS: VANCOMYCIN INJ 1,000 MG in SODIUM CHLORIDE 0.9% 250 ML IV SCH (15:24)
[2022-03-20] MEDS: HYDROmorphone 1 MG/1 ML SYRINGE IV PRN ×2 (16:00→23:28)
[2022-03-20] MEDS ORDERED: ENOXAPARIN 60 MG/0.6 ML SYRINGE SUBCUT SCH (16:00)
[2022-03-20] MEDS: METOPROLOL TARTRATE 5 MG/5 ML VIAL IV PRN (18:30)
[2022-03-20] MEDS ORDERED: ACETAMINOPHEN 650 MG SUPP RECTAL PRN (20:10)
[2022-03-20] MEDS: SIMVASTATIN 20 MG TABLET PO SCH (20:13)
[2022-03-21] MEDS ORDERED: METOPROLOL TARTRATE 5 MG/5 ML VIAL IV SCH
[2022-03-21] MEDS: VANCOMYCIN INJ 1,000 MG in SODIUM CHLORIDE 0.9% 250 ML IV SCH ×2 (03:10→13:17)
[2022-03-21] MEDS: HYDROmorphone 1 MG/1 ML SYRINGE IV PRN ×2 (03:45→08:55)
[2022-03-21 03:46] LABS: Basophils % 0.2 % (0.0-0.8); Hematocrit 35.9 VOL% (35.7-47.0); Hemoglobin 11.3 GM/DL (12.0-16.0); Immature Granulocytes % 0.3 %; Immature Granulocytes Absolute 0.04 #; Lymphocytes # 0.7 10*3/uL (1.4-4.0); Lymphocytes % 5.6 % (21.3-54.2); Mean Corpuscular HGB Conc 31.5 GM/DL (32-36); Mean Corpuscular Volume 78.9 FL (87-102); Mean Platelet Volume 8.2 FL (9.6-12.0); Monocytes # 0.8 10*3/uL (0.11-0.8); Monocytes % 7.1 % (1.7-12.7); Neutrophils % 86.8 % (38.7-73.9); Platelet Count 331 T/CUMM (130-400); Red Blood Count 4.55 MC/CUMM (3.8-5.5); Red Cell Distribution Width 19.2 % (9.3-17.3); White Blood Count 11.8 T/CUMM (4-12)
[2022-03-21 04:02] LABS: Calcium 7.4 MG/DL (8.5-10.1); Potassium 3.5 MMOL/L (3.5-5.1)
[2022-03-21] MEDS: PIPERACILLIN/TAZOBACTAM 3,375 MG in SODIUM CHLORIDE 0.9% 100 ML IV SCH ×3 (04:10→20:20)
[2022-03-21] MEDS: POTASSIUM CHLORIDE RIDER 10 MEQ/100 ML PREMIX IV PRN ×2 (06:08→07:23)
[2022-03-21] MEDS: MAGNESIUM SULF RIDER 2 GM/50 ML PREMIX IV PRN ×2 (06:08→11:07)
[2022-03-21] MEDS: METOPROLOL TARTRATE 5 MG/5 ML VIAL IV PRN (07:49)
[2022-03-21] MEDS: DILTIAZEM CD 120 MG CAPSULE PO SCH (08:59)
[2022-03-21] MEDS: LACTATED RINGERS 1,000 ML IV SCH (08:59)
[2022-03-21] MEDS: GABAPENTIN 300 MG CAPSULE PO SCH ×3 (08:59→20:21)
[2022-03-21] MEDS: PANTOPRAZOLE 40 MG VIAL IV SCH ×2 (08:59→20:21)
[2022-03-21] MEDS: SOTALOL 80 MG TABLET PO SCH ×2 (08:59→20:20)
[2022-03-21] MEDS: POLYETHYLENE GLYCOL POWDER 17 GM PACK PO SCH ×3 (08:59→20:21)
[2022-03-21] MEDS: INSULIN REGULAR 100 UNIT/ML SUBCUT SCH ×4 (08:59→20:20)
[2022-03-21] MEDS ORDERED: MAGNESIUM SULF RIDER 4 GM/100 ML PREMIX IV ONE (10:16)
[2022-03-21] MEDS: METOCLOPRAMIDE 10 MG/2 ML VIAL IV SCH ×3 (11:07→23:22)
[2022-03-21] MEDS ORDERED: ZINC OXIDE PASTE 113 GM TUBE TOP PRN (14:17)
[2022-03-21] MEDS: MORPHINE 2 MG/1 ML SYRINGE IV PRN ×2 (15:55→20:21)
[2022-03-21] MEDS ORDERED: ALBUTEROL/IPRATROPIUM 3 ML NEB RESP TX PRN (16:02)
[2022-03-21] MEDS: SIMVASTATIN 20 MG TABLET PO SCH (20:21)
[2022-03-22] MEDS: VANCOMYCIN INJ 1,000 MG in SODIUM CHLORIDE 0.9% 250 ML IV SCH (01:24)
[2022-03-22] MEDS ORDERED: SODIUM CHLORIDE 0.9% 250 ML IV ONE (02:27)
[2022-03-22] MEDS ORDERED: DIGOXIN 0.5 MG/2 ML AMP IV ONE ×2 (02:54→04:00)
[2022-03-22] MEDS ORDERED: DIGOXIN 0.5 MG/2 ML AMP ONE (03:00)
[2022-03-22] MEDS ORDERED: PHENYLEPHRINE DRIP 40 MG/250 ML PREMIX IV ONE (03:01)
[2022-03-22] MEDS: MORPHINE 2 MG/1 ML SYRINGE IV PRN ×5 (03:23→18:21)
[2022-03-22] MEDS ORDERED: PHENYLEPHRINE DRIP 40 MG/250 ML PREMIX IV PRN (03:27)
[2022-03-22 04:19] LABS: Basophils % 0.1 % (0.0-0.8); Hematocrit 35.4 VOL% (35.7-47.0); Hemoglobin 10.5 GM/DL (12.0-16.0); Immature Granulocytes % 0.5 %; Immature Granulocytes Absolute 0.09 #; Lymphocytes # 0.5 10*3/uL (1.4-4.0); Lymphocytes % 2.4 % (21.3-54.2); Mean Corpuscular HGB Conc 29.7 GM/DL (32-36); Mean Corpuscular Volume 83.7 FL (87-102); Mean Platelet Volume 8.5 FL (9.6-12.0); Monocytes # 0.8 10*3/uL (0.11-0.8); Monocytes % 4.3 % (1.7-12.7); Neutrophils % 92.7 % (38.7-73.9); Platelet Count 371 T/CUMM (130-400); Red Blood Count 4.23 MC/CUMM (3.8-5.5); Red Cell Distribution Width 19.3 % (9.3-17.3)
[2022-03-22 04:41] LABS: Calcium 7.4 MG/DL (8.5-10.1); Osmolality,Calculated 288.2 MOS/KG (273-304); Potassium 4.6 MMOL/L (3.5-5.1)
[2022-03-22 04:46] LABS: Band Neutrophils 3 % (0-10); Lymphocytes 1 % (20-55); Platelet Estimate Normal; Total Cells Counted 100
[2022-03-22] MEDS: PIPERACILLIN/TAZOBACTAM 3,375 MG in SODIUM CHLORIDE 0.9% 100 ML IV SCH (04:59)
[2022-03-22] MEDS: METOCLOPRAMIDE 10 MG/2 ML VIAL IV SCH ×3 (05:05→18:11)
[2022-03-22] MEDS: INSULIN REGULAR 100 UNIT/ML SUBCUT SCH (07:27)
[2022-03-22] MEDS ORDERED: INSULIN REGULAR 100 UNIT/ML SUBCUT SCH (08:08)
[2022-03-22] MEDS ORDERED: INSULIN GLARGINE 100 UNIT/ML SUBCUT SCH (09:00)
[2022-03-22] MEDS ORDERED: INSULIN REGULAR 100 UNIT/ML IV ONE (09:23)
[2022-03-22] MEDS ORDERED: SODIUM CHLORIDE 0.9% 1,000 ML IV ONE (09:23)
[2022-03-22] MEDS ORDERED: SODIUM PHOSPHATE INJ 13.3 MMOL in SODIUM CHLORIDE 0.9% 250 ML IV PRN (09:23)
[2022-03-22] MEDS ORDERED: SODIUM BICARB INJ 100 MEQ in STERILE WATER INJ 400 ML IV PRN (09:23)
[2022-03-22] MEDS ORDERED: MAGNESIUM SULF RIDER 2 GM/50 ML PREMIX IV PRN (09:26)
[2022-03-22] MEDS ORDERED: MAGNESIUM SULF RIDER 4 GM/100 ML PREMIX IV PRN (09:26)
[2022-03-22] MEDS ORDERED: INSULIN REGULAR DRIP 100 ML IV SCH (09:30)
[2022-03-22] MEDS ORDERED: DEXTROSE 10% 250 ML BAG IV PRN ×2 (09:40)
[2022-03-22] MEDS: SOTALOL 80 MG TABLET PO SCH ×2 (10:12→20:00)
[2022-03-22] MEDS: DILTIAZEM CD 120 MG CAPSULE PO SCH (10:12)
[2022-03-22] MEDS: GABAPENTIN 300 MG CAPSULE PO SCH ×2 (10:13→14:55)
[2022-03-22] MEDS ORDERED: LORazepam 2 MG/1 ML VIAL IV PRN (10:13)
[2022-03-22] MEDS: LACTATED RINGERS 1,000 ML IV SCH (10:14)
[2022-03-22] MEDS: POLYETHYLENE GLYCOL POWDER 17 GM PACK PO SCH ×2 (10:14→14:55)
[2022-03-22] MEDS: PANTOPRAZOLE 40 MG VIAL IV SCH (10:15)
[2022-03-22] MEDS ORDERED: SODIUM CHLORIDE 0.9% 1,000 ML IV SCH ×2 (10:30→14:30)
[2022-03-22] MEDS: SIMVASTATIN 20 MG TABLET PO SCH (20:00)
[2022-03-23] MEDS: MORPHINE 2 MG/1 ML SYRINGE IV PRN (01:23)
[2022-03-23] MEDS ORDERED: SODIUM CHLORIDE 0.45% 1,000 ML IV SCH (02:30)
[2022-03-23] MEDS ORDERED: DIGOXIN 0.25 MG TABLET PO SCH (13:00)
[2022-03-23] MEDS ORDERED: MIDAZOLAM 2 MG/2 ML VIAL ONE (13:08)
[2022-03-23 21:25] VITALS: BP 63/30
== END 2022-03-23 23:54 | disposition expired | DRG 180 ==
LOC: N.ED 02:41 → SUATTDRO 04:11 → N.EDINP 04:11 → N.TELES 12:51 → N.CC 03-20 10:57 → N.3E 03-23 16:49
PROVIDERS: ADMIT Internal Medicine; ATTEND Internal Medicine